=== PATIENT | male | born 1960 | race Caucasian/White ===

== ENCOUNTER → 2024-06-15 | Outpatient (CLI) | payer OTHER, SELFPAY ==
--- NOTE | 2024-06-15 15:00 | XR_ITS ---
Examination: CT left wrist, without contrast. 2-D sagittal reconstructions. 2-D coronal reconstructions. 3-D reconstructions. Date and time of exam:June 15, 2024 1422 hours INDICATIONS: Left wrist pain beginning 5 years ago CTDI: vol (mGy):3.84 DLP: (mGycm):70.5 Technique: Multiple 1.25 mm axial sections of the left wrist without intravenous contrast have been obtained. 2-D sagittal and coronal reconstructions have been obtained. 3-D reconstructions have been obtained. Low dose protocols were performed. One or more of the following dose reduction techniques were used; automated exposure control, adjustment of the mA and/or KV according to patient size, use of iterative reconstruction technique. Findings: Advanced osteoarthritis radiocarpal joint, marked narrowing radial navicular joint space Large cysts cystic areas within carpal bones The capitate is rotated relative to the lunate on the lateral view although yosef dislocation is not depicted Diffuse intercarpal joint narrowing No opaque foreign body No carpal metacarpal dislocation No yosef avascular necrosis No opaque foreign bodies IMPRESSION: Advanced osteoarthritis as above The capitate is rotated relative to the lunate on the lateral view although no yosef dislocation is noted, clinical correlation advised
== END | disposition home or self-care (01) ==
LOC: CCTX 14:16
PROVIDERS: PCP Nurse Practitioner Gerontology; Referring Provider Nurse Practitioner Gerontology; Visit Provider Nurse Practitioner Gerontology
DX: M19.032 Primary osteoarthritis, left wrist (principal)
CPT/HCPCS: 73200

== ENCOUNTER 2024-10-26 06:30 | Day surgery (SDC) | payer OTHER, SELFPAY ==
--- NOTE | 2024-10-25 07:00 | EKG_ITS ---
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
[2024-10-25 08:03] VITALS: BMI 23.8
[2024-10-25 09:33] LABS: INR 1.1 (0.9-1.3); Prothrombin Time 11.6 Seconds (9.0-12.2)
[2024-10-25 09:36] LABS: Alanine Aminotransferase 23 U/L (10-49); Albumin, Serum 4.4 gm/dL (3.4-4.8); Albumin/Globulin Ratio 2.3 (1.2-2.2); Alkaline Phosphatase 56 U/L (46-116); Anion Gap 7 (7-16); Aspartate Amino Transferase 23 U/L (0-34); BUN/Creatinine Ratio 16 Ratio (12-20); Bilirubin,Total 0.7 mg/dL (0.3-1.2); Blood Urea Nitrogen 13 mg/dL (9-23); Calcium 9.1 mg/dL (8.3-10.6); Calcium (Corrected) 9.1 mg/dL (8.5-10.1); Carbon Dioxide 28.7 mMol/L (20.0-31.0); Chloride 107 mMol/L (98-107); Creatinine (Component) 0.8 mg/dL (0.6-1.3); Estimated Creatinine Clearance 86.1 mL/min (>60); Globulin 1.9 gm/dL (2.3-3.5); Glucose 104 mg/dL (74-106); Osmolality,Calculated 285 (275-295); Sodium 143 mMol/L (136-145); Total Protein 6.3 gm/dL (5.7-8.2); eGFR > 60 See Note
[2024-10-25 09:58] LABS: Basophils # (Auto) 0.1 Thou/mm3 (0.0-0.2); Basophils % (Auto) 1 % (0-2.5); Eosinophils # (Auto) 0.1 Thou/mm3 (0.0-0.5); Eosinophils % (Auto) 2 % (0-10); Hemoglobin 14.6 g/dL (13.5-16.0); Immature Granulocytes % (Auto) 0 % (0-0); Immature Granulocytes Auto 0.01 Thou/mm3 (0.00-0.00); Lymphocytes # (Auto) 1.1 Thou/mm3 (1.0-4.8); Lymphocytes % (Auto) 21 % (10-50); Mean Corpuscular HGB Conc 34.8 g/dl (31.0-37.0); Mean Corpuscular Hemoglobin 32.2 pg (25.0-35.0); Mean Corpuscular Volume 93 fL (80-100); Monocytes # (Auto) 0.7 Thou/mm3 (0.0-0.8); Monocytes % (Auto) 12 % (0-12); Neutrophils # (Auto) 3.5 Thou/mm3 (1.8-7.7); Neutrophils % (Auto) 65 % (37-80); Nucleated Red Blood Cell % 0 /100 WBC (0); Platelet Count 199 Thou/mm3 (140-440); RDW Standard Deviation 43.7 fL (35.1-43.9); Red Blood Count 4.53 Miln/mm3 (4.50-5.90); White Blood Count 5.5 Thou/mm3 (3.8-10.6)
[2024-10-26] VITALS (8 sets, daily range): BP systolic 115–141; BP diastolic 72–100; PULSE 60–89; RESP 14–20; TEMP 36.2–36.6; O2SAT 97–100; BMI 24.3
--- NOTE | 2024-10-26 10:00 | SUR.PHASEI ---
1000 Patient arrived to recovery resting comfortably in [facility] on oxygen 10L via oxy mask with an oral airway in place, breathing unlabored, vital signs stable, dressing intact to lower abdomen; dermabond, gauze, medipore tape, no bleeding noted, report received from Miguel Angel MENDOZA/Miladis MENDOZA and Ankur DOWLING
--- NOTE | 2024-10-26 10:05 | ESOP_ITS ---
Date of Procedure 10/26/24 Pre Op Diagnosis Bilateral incarcerated inguinal hernia Post Op Diagnosis Bilateral incarcerated inguinal hernia Procedure Repair of bilateral incarcerated inguinal hernias with mesh Findings Bilateral indirect inguinal hernias with incarcerated omentum Procedure Description Patient brought into the operating room in supine position. After administration of general endotracheal anesthesia, patient's bilateral groins were shaved, prepped and draped in standard surgical manner. The procedure started on the patient's right side. The right inguinal crease was anesthetized with half percent Marcaine. An approximately 8 cm incision was made and dissection was carried to subcutaneous tissue. The Manuel's fascia was divided and the external oblique aponeurosis was opened towards the external ring. The hernia sac and the spermatic cord structures were from the posterior aspect of the external oblique aponeurosis at the level of pubic tubercle. The hernia sac was then meticulously dissected off the spermatic cord structures at the level of internal ring. The hernia sac was opened and the contents that were incarcerated omentum, reduced. The hernia sac was then ligated at the level of internal ring. The floor of inguinal canal was then reconstructed with ultra Pro proceed mesh. The mesh was secured with running 2-0 Prolene suture. The mesh secured medially to the pubic tubercle, superiorly into the conjoin tendon, inferiorly and to the shelving edge of inguinal ligament, the mesh was placed around the cord structures and tacked under the external oblique aponeurosis laterally. The area was copiously and thoroughly washed and irrigated, all the fluids were suctioned and the suction fluid returned clear. Hemostasis was adequate and satisfactory. External oblique aponeurosis was closed with running 2-0 Vicryl suture, and Manuel's fascia was closed with interrupted suture using 3-0 Vicryl. The incision was closed with 4-0 Monocryl in subcutaneous fashion. I then turned my attention to patient's left side. Procedure was performed in similar fashion and finding with identical. Instruments, needles and sponge counts were reported to be correct ?2. Patient tolerated the procedure well. He was extubated, breathing spontaneously and without difficulty and was tra nsferred to postanesthesia care in stable condition. Anesthesia GETA and local Pathology / specimen Other (Right inguinal hernia sac. Left inguinal hernia sac) Estimated Blood Loss 20 Condition Stable Disposition PACU Surgeon Juliet Sharp MD Surgical Staff Operation Date: 10/26/24 08:30 Case Staff PATIENT LIAISON: Ankur Boyle RNanesthesiologist/physician: Maryana Nicholas
[2024-10-26] MEDS: HYDROmorphone INJ 2 MG/ML VIAL 0.5 MG IVP ×2 (10:14→10:23)
--- NOTE | 2024-10-26 10:17 | SUR.PHASEI ---
1017 Verbal order read-back received from Dr. Lila Kwon 10mg/325 1 tab PO x1, for pain, will place order in EMR and administer per MD order
[2024-10-26] MEDS: HYDROcodone/APAP 10/325 TAB PO (10:34)
--- NOTE | 2024-10-26 11:45 | SUR.PHASEII ---
1110 Patient disconnected from vital signs monitor, dressed in his clothing, IV disconnected and is awaiting his ride, awake and alert, breathing unlabored, vital signs stable, per patient his pain is tolerable, dressing intact; no bleeding noted, abdominal binder applied on patient per MD, ate jello and drinking juices; denies nausea, discharge instructions were given to patient daughter and patient, daughter signed discharge instructiosn. Patient daughter was going to the pharmacy across the street to pick up and delivery driver medication for her father and then was coming back to the hospital to pick patient up. 1145 Patients daughter arrived, patient discharge with all his belongings, transported via wheelchair, and left in a private vehicle.
== END 2024-10-26 11:45 | disposition home or self-care (01) ==
PROVIDERS: Anesthesiology; PCP Internal Medicine Pulmonary Disease; Referring Provider Surgery; Visit Provider Surgery
PROC: (CPT 49507; principal; 2024-10-26 08:30)
DX: K40.00 Bilateral inguinal hernia, with obstruction, without gangrene, not specified as recurrent (principal); Z01.810 Encounter for preprocedural cardiovascular examination
CPT/HCPCS: 49507; 36415; 80053; 85025; 85610; 93005; A4217; A4649; C1781; J0131; J0690; J1100; J1171; J1885; J2405; J2704; J3010; J3490; A9270

== ENCOUNTER 2024-11-18 10:41 | Emergency (ER) | payer OTHER, SELFPAY ==
[2024-11-18 10:42] VITALS: BMI 24.3
[2024-11-18 11:22] VITALS: BP 129/85; PULSE 94; RESP 20; TEMP 36.9; O2SAT 99; BMI 24.7
--- NOTE | 2024-11-18 11:30 | PD.EDRME ---
Rapid Medical Screening Exam RME Arrival date/time: 11/18/24 10:41 This is a 64-year-old male that comes in with complaints of foul drainage coming out of surgery wound site. Patient states that he had an inguinal hernia repair done by Dr. Sharp the first week of October. Patient states that he has had fever and chills. Patient reports history of hyperlipidemia and high blood pressure. I have greeted and performed a focused initial assessment of this patient. Initial appropriate labs ordered at this time. A comprehensive ED assessment and evaluation of the patient and analysis of all test and completion of medical decision making process will be conducted by additional ED provider. Chief Complaint: Abdominal Pain Pediatric Time Seen by Provider: 11/18/24 11:08 Vital signs: Vital Signs Temperature 98.4 F 11/18/24 11:22 Pulse Rate 94 11/18/24 11:22 Respiratory Rate 20 11/18/24 11:22 Blood Pressure 129/85 H 11/18/24 11:22 Pulse Oximetry (%) 99 11/18/24 11:22 Oxygen Delivery Method Room Air 11/18/24 11:22
[2024-11-18 11:43] LABS: Collection Type, Urine Voided
[2024-11-18 12:02] LABS: Lactate (Lactic Acid) 1.9 mMol/L (0.4-2.0)
[2024-11-18 12:04] LABS: Basophils % (Auto) 0 % (0-2.5); Eosinophils # (Auto) 0.1 Thou/mm3 (0.0-0.5); Eosinophils % (Auto) 0 % (0-10); Hematocrit 39.7 % (41.0-53.0); Hemoglobin 13.8 g/dL (13.5-16.0); Immature Granulocytes % (Auto) 0 % (0-0); Immature Granulocytes Auto 0.05 Thou/mm3 (0.00-0.00); Lymphocytes # (Auto) 0.8 Thou/mm3 (1.0-4.8); Lymphocytes % (Auto) 7 % (10-50); Mean Corpuscular HGB Conc 34.8 g/dl (31.0-37.0); Mean Corpuscular Hemoglobin 32.1 pg (25.0-35.0); Mean Corpuscular Volume 92 fL (80-100); Monocytes # (Auto) 1.4 Thou/mm3 (0.0-0.8); Monocytes % (Auto) 12 % (0-12); Neutrophils # (Auto) 9.1 Thou/mm3 (1.8-7.7); Neutrophils % (Auto) 80 % (37-80); Nucleated Red Blood Cell % 0 /100 WBC (0); Platelet Count 245 Thou/mm3 (140-440); RDW Standard Deviation 41.7 fL (35.1-43.9); White Blood Count 11.4 Thou/mm3 (3.8-10.6)
[2024-11-18 12:08] LABS: Bilirubin,Urine Negative (Negative); Blood,Urine 1+ (Negative); Clarity,Urine Clear (Clear/Hazy); Color,Urine Yellow (Lt Yel-Yel); Culture Indicated,Urine Not Indicated; Glucose, Urine Negative (Negative); Ketones,Urine Trace (Negative); Leukocyte Esterase,Urine Negative (Negative); Nitrite,Urine Negative (Negative); PH,Urine 5.5 (5.0-7.0); Protein,Urine Trace (Neg - Trace); RBC,Urine 3 /hpf (0-3); Specific Gravity,Urine 1.031 (1.001-1.035); Squamous Epithelial Cell,Urine < 1 /hpf (0-5); Urobilinogen,Urine Negative mg/dL (0.0-1.0); WBC,Urine 1 /hpf (0-5)
[2024-11-18 12:35] LABS: Alanine Aminotransferase 16 U/L (10-49); Albumin, Serum 4.3 gm/dL (3.4-4.8); Albumin/Globulin Ratio 1.6 (1.2-2.2); Alkaline Phosphatase 82 U/L (46-116); Anion Gap 5 (7-16); Aspartate Amino Transferase 18 U/L (0-34); BUN/Creatinine Ratio 16 Ratio (12-20); Bilirubin,Total 0.7 mg/dL (0.3-1.2); Blood Urea Nitrogen 13 mg/dL (9-23); C-Reactive Protein 19.9 mg/dL (0.0-0.9); Calcium 9.4 mg/dL (8.3-10.6); Calcium (Corrected) 9.4 mg/dL (8.5-10.1); Carbon Dioxide 25.8 mMol/L (20.0-31.0); Chloride 105 mMol/L (98-107); Creatinine (Component) 0.8 mg/dL (0.6-1.3); Estimated Creatinine Clearance 83.1 mL/min (>60); Globulin 2.7 gm/dL (2.3-3.5); Glucose 111 mg/dL (74-106); Osmolality,Calculated 273 (275-295); Potassium 4.3 mMol/L (3.4-5.1); Procalcitonin 0.15 ng/ml (0.0-0.49); Sodium 136 mMol/L (136-145); eGFR > 60 See Note
--- NOTE | 2024-11-18 16:19 | XR_ITS ---
Examination: CT abdomen with intravenous contrast CT pelvis with intravenous contrast 2-D coronal reconstructions 2-D sagittal reconstructions Date and time of exam:November 18, 2024, 1725 hours INDICATIONS: Status post hernia repair 3 weeks ago with a discharge at the surgical site CTDI: vol (mGy 6.39 DLP: (mGycm) 317 Technique: Multiple axial sections of the abdomen and pelvis have been obtained. 64 slice high-resolution scanner used. 3 mm axial sections have been obtained, post intravenous injection 60 cc of Isovue 370 2-D sagittal, coronal reconstructions obtained. Low dose protocols were performed. One or more of the following dose reduction techniques were used; automated exposure control, adjustment of the mA and/or KV according to patient size, use of iterative reconstruction technique. Findings: No focal liver or splenic lesions No gallstones No pancreatic mass Small parapelvic right renal cysts, no hydronephrosis renal or ureteral calculi Normal appendix No bowel obstruction Increased radiodensity in the subcutaneous fatty tissue anterior pelvic wall more prominent right groin with soft tissue abscess in the right groin, axial image 168, coronal image 35, measuring 7 x 2.9 x 4.1 cm Urinary bladder intact IMPRESSION: Soft tissue abscess in the subcutaneous fatty tissue right groin, 7 x 2.9 x 4.1 cm
--- NOTE | 2024-11-18 16:20 | EDNOTE_ITS ---
<Statement entered by Radha Hill MD - 11/18/24 19:16> As co-signing physician, I was present and available for consult prn. I concur with the plan and care as documented by the midlevel provider. ED Ped. GI Abdomen RME/HPI General Chief Complaint: Wound Recheck / Suture Removal Stated Complaint: ABD WOUND SPLIT OPEN TODAY, SURGERY ON 10/26 FOR H Time Seen by Provider: 11/18/24 11:08 Arrival date/time: 11/18/24 10:41 RME / HPI RME / HPI narrative: 64-year-old male that comes in with complaints of foul drainage coming out of surgery wound site. Patient states that he had an inguinal hernia repair done by Dr. Sharp the first week of October. Patient states that he has had fever and chills. Patient reports history of hyperlipidemia and high blood pressure. Patient denies any vomiting denies any fever denies any other complaints therefore having a lot of pain. Patient is ambulatory. Related Data Home Medications ?Medication ?Instructions ?Recorded ?Confirmed atorvastatin 20 mg tablet 20 mg PO QPM 09/14/22 famotidine 20 mg tablet 20 mg PO BID 09/14/22 tamsulosin 0.4 mg capsule 0.4 mg PO QDAY 09/14/2209/15 lisinopril 5 mg tablet 5 mg PO DAILY 10/25/2410/25 Previous Rx's ?Medication ?Instructions ?Recorded docusate sodium 100 mg capsule 100 mg PO BID #40 caps 10/26/24 (Colace) hydrocodone 5 mg-acetaminophen 325 1 tab PO Q6H PRN pa in (scale score 10/26/24 mg tablet 7-10) #20 tabs ibuprofen 600 mg tablet 600 mg PO Q8H PRN pain (scal e 10/26/24 score 4-6) #15 tabs ibuprofen 800 mg tablet 800 mg PO Q8H PRN pain #30 t abs 11/18/24 sulfamethoxazole 800 1 tab PO BID #20 tabs mg-trimethoprim 160 mg tablet (Bactrim DS) Allergies Allergy/AdvReac Type Severity Reaction Status Date / Time No Known Allergies Allergy Verified 11/18/24 10:44 Pediatric Review of Systems Review of Systems Review of Systems: Review of system reviewed and within normal limits except mentioned in HPI Ped Exam Narrative Physical exam: VITAL SIGNS: Reviewed. GENERAL APPEARANCE: Alert and interactive, follows commands, no acute distress, HEAD AND FACE: Non-traumatic. ENT: PERRL, pink conjunctivitis, eyelid no trauma, Mucous membrane moist. NECK: Supple, nontender, no nuchal rigidity. CHEST: No tenderness, no crepitus, no paradoxical movement, no retractions. LUNGS: Clear, well ventilated, symmetric, no rales, no wheezing, no ronchi, no stridor, good breath sounds bilaterally. HEART: Regular rate, regular rhythm, no murmur, no gallops. ABDOMEN: Soft, positive bowel sounds, nondistended, no guarding, nontender, no rebound, no masses, status post bilateral hernia repair, right incision with 1 cm wound dehiscence and puslike drainage, redness noted on the surrounding nonfluctuant RECTAL: Deferred. GENITAL: Deferred. NEUROLOGICAL: Gross motor function intact sensory function intact, Appropriate for age. MUSCULOSKELETAL: low back nontender, full range of motion. EXTREMITIES: Nontender, full range of motion. SKIN: Color pink, dry, no rash, no lacerations, no abrasions, no contusions. LYMPHATICS: Deferred. Course Quality Measures none Orders Category Date Time Status CT Screening NOW Care 11/18/24 16:19 Active Insert IV NOW Care 11/18/24 16:44 Active Referral Wound Care Stat Cons 11/18/24 17:[address] abdomen pelvis w con Stat Exams 11/18/24 16:19 Completed Blood Culture (Lab) Stat Lab 11/18/24 11:31 Ordered CBC Stat Lab 11/18/24 11:47 Completed CRP [C-Reactive Protein] Stat Lab 11/18/24 11:47 Completed Comprehensive Metabolic Panel Stat Lab 11/18/24 11:47 Completed Lactate (Lactic Acid) Stat Lab 11/18/24 11:47 Completed Procalcitonin Stat Lab 11/18/24 11:47 Completed Urinalysis, C/S if Indicated Stat Lab 11/18/24 11:38 Completed Ketorolac Inj [Toradol Inj] Med 11/18/24 16:17 Discontinued 30 mg IVP X1 ONE Ringers Lactated 1000 ml [Lactated Ringers] 1,000 ml Med 11/18/24 16:18 Discontinued IV 999 mls/hr Trimethoprim/Sulfa 160/800 Ds [Bactrim Ds] Med 11/18/24 18:59 Once 1 tab PO X1 ONE cefTRIAXone/D5w 1gm IV premix [Rocephin/D5w 1gm IV Med 11/18/24 16:18 Discontinued premix] 1 gm in 50 ml IV X1 Vital Signs Vital signs: Vital Signs Temperature 98.4 F 11/18/24 11:22 Pulse Rate 94 11/18/24 11:22 Respiratory Rate 20 11/18/24 11:22 Blood Pressure 129/85 H 11/18/24 11:22 Pulse Oximetry (%) 99 11/18/24 11:22 Oxygen Delivery Method Room Air 11/18/24 11:22 Medical Decision Making MDM Narrative MDM Narrative: 64-year-old male that comes in with complaints of foul drainage coming out of surgery wound site. Patient states that he had an inguinal hernia repair done by Dr. Sharp the first week of October. Patient states that he has had fever and chills. Patient reports history of hyperlipidemia and high blood pressure. Patient denies any vomiting denies any fever denies any other complaints therefore having a lot of pain. Patient is ambulatory. Patient remained febrile in the emergency room. Patient CBC showed slight leukocytosis of 11.4 there is of the labs unremarkable. CT scan of the abdomen and pelvis showed right groin abscess Case discussed with patient's surgeon Dr. Sharp, told me that patient is okay to go home with Bactrim. Patient received IV fluids, Toradol, Ceftriaxone IV, and Bactrim Lab Data 11/18/24 11:47 11/18/24 11:47 Labs: Lab Results 11/18/24 11/18/24 Range/Units 11:38 11:47 WBC 11.4 H (3.8-10.6) Thou/mm3 RBC 4.30 L (4.50-5.90) Miln/mm3 Hgb 13.8 (13.5-16.0) g/dL Hct 39.7 L (41.0-53.0) % MCV 92 (80-100) fL MCH 32.1 (25.0-35.0) pg MCHC 34.8 (31.0-37.0) g/dl RDW Std Deviation 41.7 (35.1-43.9) fL Plt Count 245 D (140-440) Thou/mm3 Neut % (Auto) 80 (37-80) % Lymph % (Auto) 7 L (10-50) % [place] % (Auto) 12 (0-12) % Eos % (Auto) 0 (0-10) % Baso % (Auto) 0 (0-2.5) % Neut # (Auto) 9.1 H (1.8-7.7) Thou/mm3 Lymph # (Auto) 0.8 L (1.0-4.8) Thou/mm3 [place] # (Auto) 1.4 H (0.0-0.8) Thou/mm3 Eos # (Auto) 0.1 (0.0-0.5) Thou/mm3 Baso # (Auto) 0.0 (0.0-0.2) Thou/mm3 Immature Gran # (Auto) 0.05 H (0.00-0.00) Thou/mm3 Absolute Nucleated RBC 0.00 (0.00-0.00) Thou/mm3 Immature Gran % 0 (0-0) % Nucleated RBC % 0 (0) /100 WBC Sodium 136 (136-145) mMol/L Potassium 4.3 (3.4-5.1) mMol/L Chloride 105 (98-107) mMol/L Carbon Dioxide 25.8 (20.0-31.0) mMol/L Anion Gap 5 L (7-16) BUN 13 (9-23) mg/dL Creatinine 0.8 (0.6-1.3) mg/dL Estim Creat Clear Calc 83.1 (>60) mL/min eGFR > 60 (60 - ) See Note BUN/Creatinine Ratio 16 (12-20) Ratio Glucose 111 H (74-106) mg/dL Calculated Osmolality 273 L (275-295) Lactic Acid 1.9 (0.4-2.0) mMol/L Calcium 9.4 (8.3-10.6) mg/dL Corrected Calcium 9.4 (8.5-10.1) mg/dL Total Bilirubin 0.7 (0.3-1.2) mg/dL AST 18 (0-34) U/L ALT 16 (10-49) U/L Alkaline Phosphatase 82 (46-116) U/L C-Reactive Prot, Quant 19.9 H (0.0-0.9) mg/dL Total Protein 7.0 (5.7-8.2) gm/dL Albumin 4.3 (3.4-4.8) gm/dL Globulin 2.7 (2.3-3.5) gm/dL Albumin/Globulin Ratio 1.6 (1.2-2.2) Procalcitonin 0.15 (0.0-0.49) ng/ml Ur Collection Type Voided Urine Color Yellow (Lt Yel-Yel) Urine Clarity Clear (Clear/Hazy) Urine pH 5.5 (5.0-7.0) Ur Specific [place] 1.031 (1.001-1.035) Urine Protein Trace (Neg - Trace) Urine Glucose (UA) Negative (Negative) Urine Ketones Trace (Negative) Urine Blood 1+ A (Negative) Urine Nitrite Negative (Negative) Urine Bilirubin Negative (Negative) Urine Urobilinogen (Auto) Negative (0.0-1.0) mg/dL Ur Leukocyte Esterase Negative (Negative) Urine RBC 3 (0-3) /hpf Urine WBC 1 (0-5) /hpf Ur Squamous Epith Cells < 1 (0-5) /hpf Urine Bacteria None (None) Ur Culture Indicated? Not Indicated MDM (ped GI) Patient data External records reviewed:: None Clinical information provided by:: patient Social determinants that could affect healthcare access:: none Patient has the following chronic illnesses:: Recent inguinal hernia repair How is presenting disease/condition affected by chronic disease/condition?: e xacerbated by Evaluation data The following diagnostics were reviewed and interpreted by me:: lab results and radiology exam(s) Lab and/or radiology exams considered but not ordered:: None Interpretation Summary: See results MDM Medications Medications considered but not ordered:: None Medication administrations:: Medication Administration History Trimethoprim/Sulfamethoxazole (Trimethoprim/Sulfa 160/800 Ds Tablet) 1 tab PO X1 ONE Stop: 11/18/24 19:00 Discontinued Medications Lactated Ringer's (Lactated Ringers) 1,000 mls @ 999 mls/hr IV .Q1H1M ONE Stop: 11/18/24 17:18 Last Infusion: 11/18/24 18:30 Dose: Infused Documented By: Admin: 11/18/24 17:13 Dose: 999 mls/hr Documented By: MICHELLE Ceftriaxone Sodium/Dextrose (Rocephin/D5w 1gm Iv Premix) 1 gm in 50 mls @ 100 mls/hr IV X1 ONE Stop: 11/18/24 16:47 Last Infusion: 11/18/24 17:14 Dose: Infused Documented By: Admin: 11/18/24 16:48 Dose: 100 mls/hr Documented By: MICHELLE Ketorolac Tromethamine (Ketorolac Inj 30 Mg/Ml Vial) 30 mg IVP X1 ONE Stop: 11/18/24 16:18 Last Admin: 11/18/24 16:41 Dose: 30 mg Documented By: MICHELLE Toradol IM, ceftriaxone IV, IV fluids and Bactrim p.o. Consultations Consultation(s) initiated? (list below): No Diagnosis Most likely diagnosis given after review of the tests above:: Status post inguinal hernia repair, with infection, postop infection Admission Indicated Admission indicated?: not indicated Explain why admission is indicated or not indicated:: None Admission Request Was there a request for admission?: No Disposition Plan Disposition Plan: Discharge Discharge Attestation Discharge Attestation: The patient was given an opportunity to ask questions and understood the discharge instructions. Discharge instructions specifically effects, indications for sooner follow up or return to the emergency department, and the expected course of current diagnosis. Patient condition: Stable Discharge Plan Plan Patient Disposition: HOME (Self Care) Discharge Disposition comment: Stable Prescriptions/Referrals Prescriptions/Med Rec: New sulfamethoxazole-trimethoprim [Bactrim DS] 800-160 mg tablet 1 tab PO BID Qty: 20 0RF ibuprofen 800 mg tablet 800 mg PO Q8H PRN (Reason: pain) Qty: 30 0RF No Action atorvastatin 20 mg Tablet 20 mg PO QPM famotidine 20 mg Tablet 20 mg PO BID tamsulosin 0.4 mg Capsule 0.4 mg PO QDAY lisinopril 5 mg tablet 5 mg PO DAILY Patient Comments: TAKE 1 TABLET BY MOUTH EVERY DAY docusate sodium [Colace] 100 mg capsule 100 mg PO BID Qty: 40 0RF ibuprofen 600 mg tablet 600 mg PO Q8H PRN (Reason: pain (scale score 4-6)) Qty: 15 0RF hydrocodone-acetaminophen 5-325 mg tablet 1 tab PO Q6H MDD 4 PRN (Reason: pain (scale score 7-10)) Qty: 20 0RF Referrals: Imtiaz Romero MD [Primary Care Provider] - In 1 week Problem List Clinical Impression: Post-operative infection Patient/Caregiver Discharge Instructions Discharge Activity: activity as tolerated Education Materials: ED Post Op Wound Check, Infection Additional Instructions: Thank you for the opportunity for serving you today. You are stable for discharged . You are advised to: Follow-up with your surgeon, Dr. Sharp next week Return to ED for worsening of symptoms Increase oral fluids Take medication as prescribed Try to express the abscess twice a day as needed Print Language: Cymraes Stand Alone Forms: [employer]ash[employer] Award Info., Patient Portal Info Letter PA/CEMENT PATCHER Supervising Physician PA/CEMENT PATCHER Supervising Physician: MD Sergio
[2024-11-18] MEDS: KETOROLAC INJ 30 MG/ML VIAL IVP (16:41)
[2024-11-18] MEDS: cefTRIAXone/D5w 1gm IV premix 1 GM/50 ML BAG IV (16:48)
[2024-11-18 16:54] VITALS: BP 128/89; PULSE 75; RESP 16; TEMP 37.4; O2SAT 98
[2024-11-18] MEDS: RINGERS LACTATED 1000 ML 1,000 ML 999 ML IV (17:13)
[2024-11-18 19:05] VITALS: BP 141/87; PULSE 81; RESP 16; TEMP 37.2; O2SAT 97
--- NOTE | 2024-11-18 19:23 | PC.NURSE ---
PT WAS BIT GIVEN BACTRIM DUE TO PT WAS DC
== END 2024-11-18 19:05 | disposition home or self-care (01) ==
PROVIDERS: Nurse Practitioner Family; Emergency Provider Emergency Medicine; PCP Internal Medicine Pulmonary Disease
DX: T81.40XA Infection following a procedure, unspecified, initial encounter (principal); E78.5 Hyperlipidemia, unspecified; L02.214 Cutaneous abscess of groin
CPT/HCPCS: 36415; 74177; 80053; 81001; 83605; 84145; 85025; 86140; 87040; 96361; 96365; 96375; 99285; A4649; J0696; J1885; J7120; Q9967

== ENCOUNTER 2024-12-25 13:22 | Emergency (ER) | payer OTHER, SELFPAY ==
[2024-12-25 13:22] VITALS: BMI 22.9
[2024-12-25 13:40] VITALS: BP 129/80; PULSE 80; RESP 18; TEMP 37.2; O2SAT 99
--- NOTE | 2024-12-25 13:48 | PD.EDRME ---
Rapid Medical Screening Exam RME Arrival date/time: 12/25/24 13:22 64-year-old male with a history of hyperlipidemia, hypertension, prostatectomy, presents to the emergency room with a chief complaint of hematuria x 3 days. I have greeted and performed a focused initial assessment of this patient. A comprehensive ED assessment and evaluation of the patient, analysis of all test results, and completion of the medical decision making process will be conducted by additional ED providers. Chief Complaint: General Adult/Misc Complain Vital signs: Vital Signs Temperature 98.9 F 12/25/24 13:40 Pulse Rate 80 12/25/24 13:40 Respiratory Rate 18 12/25/24 13:40 Blood Pressure 129/80 12/25/24 13:40 Pulse Oximetry (%) 99 12/25/24 13:40 Oxygen Delivery Method Room Air 12/25/24 13:40 Vital signs reviewed by provider: Yes
[2024-12-25 14:14] LABS: Basophils # (Auto) 0.0 Thou/mm3 (0.0-0.2); Basophils % (Auto) 0 % (0-2.5); Eosinophils # (Auto) 0.0 Thou/mm3 (0.0-0.5); Eosinophils % (Auto) 0 % (0-10); Hematocrit 37.9 % (41.0-53.0); Hemoglobin 13.0 g/dL (13.5-16.0); Immature Granulocytes Auto 0.05 Thou/mm3 (0.00-0.00); Lymphocytes # (Auto) 0.8 Thou/mm3 (1.0-4.8); Lymphocytes % (Auto) 7 % (10-50); Mean Corpuscular HGB Conc 34.3 g/dl (31.0-37.0); Mean Corpuscular Hemoglobin 31.4 pg (25.0-35.0); Mean Corpuscular Volume 92 fL (80-100); Monocytes # (Auto) 1.9 Thou/mm3 (0.0-0.8); Monocytes % (Auto) 16 % (0-12); Neutrophils # (Auto) 9.1 Thou/mm3 (1.8-7.7); Neutrophils % (Auto) 77 % (37-80); Nucleated Red Blood Cell # 0.00 Thou/mm3 (0.00-0.00); Nucleated Red Blood Cell % 0 /100 WBC (0); Platelet Count 222 Thou/mm3 (140-440); RDW Standard Deviation 43.4 fL (35.1-43.9); Red Blood Count 4.14 Miln/mm3 (4.50-5.90); White Blood Count 11.9 Thou/mm3 (3.8-10.6)
[2024-12-25 14:40] LABS: INR 1.1 (0.9-1.3); Partial Thromboplastin Time 41.0 Seconds (22.0-36.0); Prothrombin Time 12.4 Seconds (9.0-12.2)
[2024-12-25 14:41] LABS: Collection Type, Urine Clean Catch; Squamous Epithelial Cell,Urine 0 /hpf (0-5)
[2024-12-25 14:43] LABS: Alanine Aminotransferase 59 U/L (10-49); Albumin, Serum 4.2 gm/dL (3.4-4.8); Albumin/Globulin Ratio 1.8 (1.2-2.2); Alkaline Phosphatase 90 U/L (46-116); Anion Gap 8 (7-16); Aspartate Amino Transferase 51 U/L (0-34); BUN/Creatinine Ratio 12 Ratio (12-20); Bilirubin,Total 0.4 mg/dL (0.3-1.2); Blood Urea Nitrogen 11 mg/dL (9-23); Calcium 8.8 mg/dL (8.3-10.6); Calcium (Corrected) 8.8 mg/dL (8.5-10.1); Carbon Dioxide 24.6 mMol/L (20.0-31.0); Chloride 99 mMol/L (98-107); Creatinine (Component) 0.9 mg/dL (0.6-1.3); Estimated Creatinine Clearance 79.2 mL/min (>60); Globulin 2.3 gm/dL (2.3-3.5); Glucose 108 mg/dL (74-106); Osmolality,Calculated 264 (275-295); Potassium 3.5 mMol/L (3.4-5.1); Sodium 132 mMol/L (136-145); Total Protein 6.5 gm/dL (5.7-8.2); eGFR > 60 See Note
[2024-12-25 15:29] LABS: Blood,Urine 3+ (Negative); Color,Urine Drk Red (Lt Yel-Yel); Glucose, Urine Negative (Negative); Leukocyte Esterase,Urine 2+ (Negative); PH,Urine 7.0 (5.0-7.0); Protein,Urine 3+ (Neg - Trace); Specific Gravity,Urine 1.020 (1.001-1.035); Urobilinogen,Urine 4.0 mg/dL (0.0-1.0)
[2024-12-25 15:50] LABS: Bilirubin,Urine Negative (Negative); Nitrite,Urine Negative (Negative); RBC,Urine 81606 /hpf (0-3)
[2024-12-25 15:51] LABS: Clarity,Urine Bloody (Clear/Hazy); Ketones,Urine Negative (Negative); WBC,Urine 39 /hpf (0-5)
[2024-12-25 18:15] VITALS: BP 132/80; PULSE 76; RESP 18; TEMP 37.3; O2SAT 96
--- NOTE | 2024-12-25 18:17 | PD.EDMALE ---
ED Male Genitalurinary RME/HPI General Chief complaint: General Adult/Misc Complain Stated complaint: HEMATURIA Time Seen by Provider: 12/25/24 14:08 Arrival date/time: 12/25/24 13:22 RME / HPI RME / HPI Narrative: 12/25/24 13:22 64-year-old male with a history of hyperlipidemia, hypertension, prostatectomy, presents to the emergency room with a chief complaint of hematuria x 3 days. I have greeted and performed a focused initial assessment of this patient. A comprehensive ED assessment and evaluation of the patient, analysis of all test results, and completion of the medical decision making process will be conducted by additional ED providers. This section includes all my notes and documentations, including HPI, PE, and ED course. Silas Muñoz MD HPI: ROS: All negative except as documented in HPI. Physical Exam: General: Alert and oriented. No acute distress when remaining still. Eyes: Conjunctivae and lids clear. ENT: No nasal congestion. Neck: Supple. Heart: RRR. Lungs: No respiratory distress. Good air movement. No rhonchi, wheezing, rales. Abdomen: Soft and nontender. Normal bowel sounds. No distension. No rebound or guarding. Back: No CVA tenderness. Skin: Warm and dry. Neuro: Alert and oriented X 3. I reviewed EMS and [facility] notes. I reviewed all diagnostic test results. My interpretation of the EKG is My interpretation of the chest x-ray is My review of the CT report is Blood tests remarkable for WBC 11.9. UA remarkable for 2+ leukocyte esterase, 20909 RBCs, and 39 WBCs. At this point, diagnoses include Treatment here included Significant improvement Not yet done: I discussed the case with our hospitalist. About the presentation and exam and diagnostics and treatments here. And need of further care in the hospital. Will accept the patient. Not yet done: Based on my best medical judgment, made decision no further evaluation or treatment indicated at this time. Patient understands and agrees to the discharge instructions customized and printed, see below. Silas Muñoz MD Related Data Home Medications ?Medication ?Instructions ?Recorded ?Confirmed atorvastatin 20 mg tablet 20 mg PO QPM 09/14/22 10/25/24 famotidine 20 mg tablet 20 mg PO BID 09/14/22 10/25/24 tamsulosin 0.4 mg capsule 0.4 mg PO QDAY 09/14/22 10/25/24 lisinopril 5 mg tablet 5 mg PO DAILY 10/25/24 10/25/24 Previous Rx's ?Medication ?Instructions ?Recorded docusate sodium 100 mg capsule 100 mg PO BID #40 caps 10/26/24 (Colace) hydrocodone 5 mg-acetaminophen 325 1 tab PO Q6H PRN pain (scale score 10/26/24 mg tablet 7-10) #20 tabs ibuprofen 600 mg tablet 600 mg PO Q8H PRN pain (scale 10/26/24 score 4-6) #15 tabs ibuprofen 800 mg tablet 800 mg PO Q8H PRN pain #30 tabs 11/18/24 sulfamethoxazole 800 1 tab PO BID #20 tabs 11/18/24 mg-trimethoprim 160 mg tablet (Bactrim DS) Allergies Allergy/AdvReac Type Severity Reaction Status Date / Time No Known Allergies Allergy Verified 12/25/24 13:25 Review of Systems Review of Systems Systems Reviewed: All systems reviewed, normal except as documented Past Medical History Past Medical History NEUROLOGIC: Negative Neurological Disorders or Seizures CARDIAC: Positive Hypercholesterolemia and Hypertension; Negative Cardiac Disorders or Congestive Heart Failure RESPIRATORY: Negative Chronic Obstructive Pulmonary Disease (COPD) or Asthma GASTROINTESTINAL: Positive Gastrointestinal Disorders, Hepatitis, Hemorrhoids and Gastroesophageal Reflux Disease GENITOURINARY: Positive Genitourinary Disorders, Kidney Stones, Inguinal Hernia and Prostate Cancer; Negative Renal Disease MUSCULOSKELETAL: Positive Musculoskeletal Disorders, Arthritis and Degenerative Disk Disease ENT: Positive Glaucoma and 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, 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) ENDOCRINE: Negative Endocrine Disorders, Diabetes Mellitus Type 1 or Diabetes Mellitus Type 2 HEMATOLOGIC: Negative Blood Disorders or Sickle Cell Disease OTHER HISTORY: Positive Hospitalization (surgeries, cancer), Blood Transfusions, Chicken Pox, Measles, Mumps, Cancer (prostate) and Prostate Cancer; Negative Autoimmune Disease, Blood Transfusion Reaction or Anesthesia Reactions Family History FAMILY HISTORY: Negative Family Psychiatric Problems, Family Respiratory Disorders, Family Cardiac Disorders, Family Gastrointestinal Problems, Family Cancer, Family Surgery or Family Anesthesia Reaction Surgical History SURGICAL: Positive Eye Surgery, Tonsillectomy, Transurethral Resection and Joint Replacement (wrist bilateral) Social History SMOKING STATUS: Current every day smoker ED Exam Narrative Physical exam: As noted in HPI. Course Quality Measures none Orders Category Date Time Status CBC Stat Lab 12/25/24 13:53 Completed CMP [Comprehensive Metabolic Panel] Stat Lab 12/25/24 13:53 Completed PT [Prothrombin Time with INR] Stat Lab 12/25/24 13:53 Completed PTT [Partial Thromboplastin Time] Stat Lab 12/25/24 13:53 Completed Type and Screen Stat Lab 12/25/24 13:53 Completed UA [Urinalysis] Stat Lab 12/25/24 14:20 Completed Urine Culture Stat Lab 12/25/24 14:20 Received Vital Signs Vital signs: Vital Signs Temperature 98.9 F 12/25/24 13:40 Pulse Rate 80 12/25/24 13:40 Respiratory Rate 18 12/25/24 13:40 Blood Pressure 129/80 12/25/24 13:40 Pulse Oximetry (%) 99 12/25/24 13:40 Oxygen Delivery Method Room Air 12/25/24 13:40 Urogenital - Male Patient data External records reviewed:: [facility] previous records (Per chart review, patient was seen here on 09/18/24 for post-operative infection.) Clinical information provided by:: patient Social determinants that could affect healthcare access:: none Patient has the following chronic illnesses:: HTN, HLD How is presenting disease/condition affected by chronic disease/condition?: uneffected by Evaluation data The following diagnostics were reviewed and interpreted by me:: lab results Lab and/or radiology exams considered but not ordered:: none Medications / Prescriptions Medications or Prescriptions considered but not ordered:: none Discharge Plan Prescriptions/Referrals Prescriptions/Med Rec: No Action atorvastatin 20 mg Tablet 20 mg PO QPM famotidine 20 mg Tablet 20 mg PO BID tamsulosin 0.4 mg Capsule 0.4 mg PO QDAY lisinopril 5 mg tablet 5 mg PO DAILY Patient Comments: TAKE 1 TABLET BY MOUTH EVERY DAY docusate sodium [Colace] 100 mg capsule 100 mg PO BID Qty: 40 0RF ibuprofen 600 mg tablet 600 mg PO Q8H PRN (Reason: pain (scale score 4-6)) Qty: 15 0RF hydrocodone-acetaminophen 5-325 mg tablet 1 tab PO Q6H MDD 4 PRN (Reason: pain (scale score 7-10)) Qty: 20 0RF sulfamethoxazole-trimethoprim [Bactrim DS] 800-160 mg tablet 1 tab PO BID Qty: 20 0RF ibuprofen 800 mg tablet 800 mg PO Q8H PRN (Reason: pain) Qty: 30 0RF Referrals: No Primary/Family,Physician [Primary Care Provider] - In 1 week Patient/Caregiver Discharge Instructions Print Language: Uzbek
--- NOTE | 2024-12-25 18:46 | PD.EDADULT ---
ED General RME/HPI General Chief complaint: General Adult/Misc Complain Stated complaint: HEMATURIA Time Seen by Provider: 12/25/24 14:08 Arrival date/time: 12/25/24 13:22 CC: Painless hematuria for the past several days intermittent. Patient has a significant history of bladder cancer and is seen by Dr. Benavides where he gets [facility] , on a regular basis, was seen there 2 weeks ago had minor spotting for a day or so and then nothing until 3 days ago when he had intermittent yosef hematuria, last episode was started this morning is been continuous over the last 3 urination episodes. Patient states all painless denies lightheadedness dizziness fever chills nausea vomiting diarrhea constipation. RME / HPI RME / HPI narrative: 12/25/24 13:22 64-year-old male with a history of hyperlipidemia, hypertension, prostatectomy, presents to the emergency room with a chief complaint of hematuria x 3 days. I have greeted and performed a focused initial assessment of this patient. A comprehensive ED assessment and evaluation of the patient, analysis of all test results, and completion of the medical decision making process will be conducted by additional ED providers. This section includes all my notes and documentations, including HPI, PE, and ED course. Silas Muñoz MD HPI: ROS: All negative except as documented in HPI. Physical Exam: General: Alert and oriented. No acute distress when remaining still. Eyes: Conjunctivae and lids clear. ENT: No nasal congestion. Neck: Supple. Heart: RRR. Lungs: No respiratory distress. Good air movement. No rhonchi, wheezing, rales. Abdomen: Soft and nontender. Normal bowel sounds. No distension. No rebound or guarding. Back: No CVA tenderness. Skin: Warm and dry. Neuro: Alert and oriented X 3. I reviewed EMS and retirement notes. I reviewed all diagnostic test results. My interpretation of the EKG is My interpretation of the chest x-ray is My review of the CT report is Blood tests remarkable for WBC 11.9. UA remarkable for 2+ leukocyte esterase, 05739 RBCs, and 39 WBCs. At this point, diagnoses include Treatment here included Significant improvement Not yet done: I discussed the case with our hospitalist. About the presentation and exam and diagnostics and treatments here. And need of further care in the hospital. Will accept the patient. Not yet done: Based on my best medical judgment, made decision no further evaluation or treatment indicated at this time. Patient understands and agrees to the discharge instructions customized and printed, see below. Silas Muñoz MD Related Data Home Medications ?Medication ?Instructions ?Recorded ?Confirmed atorvastatin 20 mg tablet 20 mg PO QPM 09/14/22 10/25/24 famotidine 20 mg tablet 20 mg PO BID 09/14/22 10/25/24 tamsulosin 0.4 mg capsule 0.4 mg PO QDAY 09/14/22 10/25/24 lisinopril 5 mg tablet 5 mg PO DAILY 10/25/24 10/25/24 Previous Rx's ?Medication ?Instructions ?Recorded docusate sodium 100 mg capsule 100 mg PO BID #40 caps 10/26/24 (Colace) hydrocodone 5 mg-acetaminophen 325 1 tab PO Q6H PRN pain (scale score 10/26/24 mg tablet 7-10) #20 tabs ibuprofen 600 mg tablet 600 mg PO Q8H PRN pain (scale 10/26/24 score 4-6) #15 tabs ibuprofen 800 mg tablet 800 mg PO Q8H PRN pain #30 tabs 11/18/24 sulfamethoxazole 800 1 tab PO BID #20 tabs 11/18/24 mg-trimethoprim 160 mg tablet (Bactrim DS) Allergies Allergy/AdvReac Type Severity Reaction Status Date / Time No Known Allergies Allergy Verified 12/25/24 13:25 Review of Systems Review of Systems Narrative Review of Systems: GEN: No fever, no chills, no weight loss EYES: No discharge, no visual changes, no pain HEENT: No ear pain, no congestion, no sore throat PULM: No shortness of breath, no cough, no congestion CV: No chest pain, no dyspnea on exertion, no palpitations GI: No nausea, no vomiting, no diarrhea, no pain, no constipation : No frequency, no urgency, no dysuria MUSC/SKEL: No joint pain, no back pain SKIN: No rash PSYCH: No hallucinations, no depression HEME/LYMPH: No easy bleeding or bruising tendencies NEURO: No weakness, no headache ED Exam Narrative Physical exam: [General: not in any acute distress Head normocephalic HEENT: Within acceptable limits Neck is supple nontender Chest equal chest rise nontender to palpation Respiratory: Clear to auscultation no wheezes crackles or rubs CV: Rate rhythm is regular no murmurs rubs or clicks Abdomen is soft nontender no masses positive bowel sounds all 4 quadrants Back: No CVA tenderness no spinous process tenderness from cervical spine thoracic and lumbar spine Skin: Intact no petechiae rash induration ulceration or crepitus Extremities: Moving all extremity against resistance cap refill less than 2 seconds neurosensory intact Neuro: Awake alert oriented x3 Glascow coma 15 no focal deficits] Course Course Course Narrative: For the course of the last 2 hours, we have had multiple attempts to try and insert a three-wa Eaton catheter for CBI, however it would only advance so far and then inflate the balloon in urethra, this was confirmed by CT this has been removed, standard 16-gauge Eaton catheter has now been placed without complication is manually being flushed at this time. Quality Measures none Orders Category Date Time Status Continuous Bladder Irrigation QSHIFT Care 12/25/24 18:45 Completed Eaton [Urinary Catheter] QS Care 12/25/24 18:45 Completed Transfer to another facility [Transfer/Discharge] Stat Discharge 12/25/24 23:[address] abdomen pelvis wo con Stat Exams 12/25/24 18:49 Completed Blood Culture (Lab) Stat Lab 12/25/24 23:20 Received CBC Stat Lab 12/25/24 13:53 Completed CMP [Comprehensive Metabolic Panel] Stat Lab 12/25/24 13:53 Completed Hemoglobin and Hematocrit Stat Lab 12/25/24 23:15 Completed PT [Prothrombin Time with INR] Stat Lab 12/25/24 13:53 Completed PTT [Partial Thromboplastin Time] Stat Lab 12/25/24 13:53 Completed Type and Screen Stat Lab 12/25/24 13:53 Completed UA [Urinalysis] Stat Lab 12/25/24 14:20 Completed Urine Culture Stat Lab 12/25/24 14:20 Received Lidocaine Jelly 2% Urojet [Xylocaine Jelly 2% Urojet] Med 12/25/24 22:00 Discontinued See Dose Instructions TOP X1 ONE Morphine Inj Med 12/25/24 20:03 Discontinued 4 mg IVP X1 ONE Morphine Inj Med 12/25/24 22:34 Discontinued 4 mg IVP X1 ONE Ondansetron Inj [Zofran Inj] Med 12/25/24 20:03 Discontinued 4 mg IVP X1 ONE cefTRIAXone/D5w 1gm IV premix [Rocephin/D5w 1gm IV Med 12/25/24 22:35 Discontinued premix] 1 gm in 50 ml IV X1 Vital Signs Vital signs: Vital Signs Temperature 98.9 F 12/25/24 13:40 Pulse Rate 80 12/25/24 13:40 Respiratory Rate 18 12/25/24 13:40 Blood Pressure 129/80 12/25/24 13:40 Pulse Oximetry (%) 99 12/25/24 13:40 Oxygen Delivery Method Room Air 12/25/24 13:40 Discharge Plan Plan Patient Disposition: [facility] Pt Being Transferred to: [facility] Service Needed for Transfer: Urology Prescriptions/Referrals Prescriptions/Med Rec: No Action atorvastatin 20 mg Tablet 20 mg PO QPM famotidine 20 mg Tablet 20 mg PO BID tamsulosin 0.4 mg Capsule 0.4 mg PO QDAY lisinopril 5 mg tablet 5 mg PO DAILY Patient Comments: TAKE 1 TABLET BY MOUTH EVERY DAY docusate sodium [Colace] 100 mg capsule 100 mg PO BID Qty: 40 0RF ibuprofen 600 mg tablet 600 mg PO Q8H PRN (Reason: pain (scale score 4-6)) Qty: 15 0RF hydrocodone-acetaminophen 5-325 mg tablet 1 tab PO Q6H MDD 4 PRN (Reason: pain (scale score 7-10)) Qty: 20 0RF sulfamethoxazole-trimethoprim [Bactrim DS] 800-160 mg tablet 1 tab PO BID Qty: 20 0RF ibuprofen 800 mg tablet 800 mg PO Q8H PRN (Reason: pain) Qty: 30 0RF Referrals: No Primary/Family,Physician [Primary Care Provider] - In 1 week Problem List Clinical Impression: Hematuria, UTI (urinary tract infection), Difficult Eaton catheter placement Patient/Caregiver Discharge Instructions Print Language: Irish Stand Alone Forms: [employer] Award Info., Patient Portal Info Letter MDM Clinical Information Provided by patient Medical Records Reviewed [facility] Meds/Rx Considered, not Ordered None Labs/Rad/Tests considered, not Ordered None EKG EKG not done Lab Interpretation Lab(s) interpretation(s): CBC shows a mild leukocytosis 11.9 H&H 13.0 and 37.9 with no thrombocytopenia Coags show PT of 12.4 INR 1.1 PTT of 41.0 Chemistry shows sodium 132 no other electrolyte imbalances renal impairment transaminitis or T. bili elevation. Urine is noted to be dark and bloody 3+ protein 3+ blood 2+ leukocyte Estrace, RBCs and 81,600 WBCs at 39 no squamous epithelial or Medication Administration(s) Medication Administration History Discontinued Medications Ceftriaxone Sodium/Dextrose (Rocephin/D5w 1gm Iv Premix) 1 gm in 50 mls @ 100 mls/hr IV X1 ONE Stop: 12/25/24 23:04 Last Infusion: 12/25/24 23:55 Dose: Infused Documented By: Admin: 12/25/24 23:25 Dose: 100 mls/hr Documented By: EF Lidocaine HCl (Lidocaine Jelly 2% (Urojet) 10 Ml Tube) 0 ml TOP X1 ONE Stop: 12/25/24 22:01 Last Admin: 12/25/24 22:09 Dose: 10 ml Documented By: EF Morphine Sulfate (Morphine Sulf Inj 10 Mg/Ml Vial) 4 mg IVP X1 ONE Stop: 12/25/24 20:04 Last Admin: 12/25/24 20:13 Dose: 4 mg Documented By: EF Morphine Sulfate (Morphine Sulf Inj 10 Mg/Ml Vial) 4 mg IVP X1 ONE Stop: 12/25/24 22:35 Last Admin: 12/25/24 22:38 Dose: 4 mg Documented By: EF Ondansetron HCl (Ondansetron Inj 2 Mg/Ml Inj 2 Ml) 4 mg IVP X1 ONE; Protocol Stop: 12/25/24 20:04 Last Admin: 12/25/24 20:13 Dose: 4 mg Documented By: EF
--- NOTE | 2024-12-25 18:49 | XR_ITS ---
Examination: CT abdomen and pelvis without contrast. Coronal 3-D reconstructions. Sagittal 2-D reconstructions. Date and time of exam:December 25, 2024, 2046 hours Comparison November 18, 2024 INDICATIONS: Diagnosis bladder cancer with hematuria today CTDI: vol (mGy): 6.66 DLP: (mGycm): 384 Technique: Axial images of the abdomen have been obtained, 3 mm slice thickness Intravenous contrast material has not been administered. Low dose protocols were performed. One or more of the following dose reduction techniques were used; automated exposure control, adjustment of the mA and/or KV according to patient size, use of iterative reconstruction technique. Findings: No focal liver or splenic lesions No gallstones No pancreatic or adrenal mass Bilateral perinephric stranding No renal or ureteral calculi Urinary bladder wall thickening Normal appendix No bowel obstruction Colonic diverticulosis Significant prostate tissue is not identified A Eaton catheter balloon is in the penile urethra Lumbar fusion L4-S1 with satisfactory alignment IMPRESSION: Perinephric stranding consistent with urinary tract infection Cystitis pattern Urinary Eaton catheter balloon is in the penile urethra
[2024-12-25] MEDS: MORPHINE SULF INJ 10 MG/ML VIAL 4 MG IVP ×2 (20:13→22:38)
[2024-12-25] MEDS: ONDANSETRON INJ 2 MG/ML INJ 2 ML 4 MG IVP (20:13)
[2024-12-25] MEDS: LIDOCAINE JELLY 2% (Urojet) 10 ML TUBE TOP (22:09)
--- NOTE | 2024-12-25 23:01 | PD.EDADDENDU ---
Emergency Room Addendum <Shana Mazariegos - Last Filed: 12/26/24 00:23> Addendum Narrative: I took over the care from previous shift physician, Bandar Gross NP, at 11 PM on 12/25/24. See previous notes for complete H & P and ED course. I reviewed all diagnostic test results. Repeat HnH remarkable for Hgb 11.7, Hct 33.2. Diagnoses include: hematuria, UTI, and difficult pena catheter placement. At 2354, I discussed the case with Dr. Choi, urologist at [facility]. About the presentation and exam and diagnostics and treatments here. And need of further care in the hospital there. Will accept the patient. Silas Muñoz MD <Silas Muñoz MD - Last Filed: 12/26/24 01:09> Addendum Narrative: I took over the care from Bandar Gross NP, at 11 PM on 12/25/24. See previous notes for complete H & P and ED course. I reviewed all diagnostic test results. Diagnoses include: Severe hematuria, UTI, and difficult pena catheter placement. At 2355, I discussed the case with Dr. Choi, urologist at [facility]. About the presentation and exam and diagnostics and treatments here. And need of further care in the hospital there. Will accept the patient. Silas Muñoz MD
[2024-12-25] MEDS: cefTRIAXone/D5w 1gm IV premix 1 GM/50 ML BAG IV (23:25)
[2024-12-25 23:36] LABS: Hematocrit 33.2 % (41.0-53.0); Hemoglobin 11.7 g/dL (13.5-16.0)
--- NOTE | 2024-12-26 00:01 | PC.NURSE ---
[facility] accepts for Urology, [facility] Ed to ED at 2359. EMS ETA 011
[2024-12-26 00:30] VITALS: BP 125/75; PULSE 88; RESP 18; TEMP 37.2; O2SAT 97
--- NOTE | 2024-12-26 01:17 | PC.NURSE ---
report called to dakotah gonzalez from [facility] via telephone
== END 2024-12-26 01:09 | disposition short-term general hospital (02) ==
PROVIDERS: Nurse Practitioner Family; Emergency Provider Emergency Medicine
DX: N39.0 Urinary tract infection, site not specified (principal); R31.9 Hematuria, unspecified; Z75.1 Person awaiting admission to adequate facility elsewhere
CPT/HCPCS: 51702; 36415; 74176; 80053; 81001; 85014; 85018; 85025; 85610; 85730; 86850; 86900; 86901; 87040; 87077; 87086; 87186; 96365; 96375; 96376; 99283; A4314; J0696; J2270; J2405

== ENCOUNTER 2025-01-03 15:21 | Emergency (ER) | payer OTHER, SELFPAY ==
[2025-01-03 15:21] VITALS: BMI 22.1
[2025-01-03 15:43] VITALS: BP 115/80; PULSE 129; RESP 20; TEMP 36.6; O2SAT 98
--- NOTE | 2025-01-03 15:58 | PD.EDMALE ---
ED Male Genitalurinary RME/HPI General Chief complaint: General Adult/Misc Complain Stated complaint: BLEEDING OUT PENIS Time Seen by Provider: 01/03/25 15:47 Arrival date/time: 01/03/25 15:21 RME / HPI RME / HPI Narrative: 64 year old male with history of hypertension, hyperlipidemia, prostate CA s/p robotic prostatectomy, urethral strictures, underwent internal visual urethrotomy 08/[address] Mahmood presents to the ED sent by Dr. Sifuentes for evaluation of bleeding from penis beginning at 10:00 AM today. Patient reports he was evaluated here on 12/25/2024 for hematuria and had a pean catheter inserted with the balloon inflated in the urethra. States he was transferred to [facility] and then discharged from there with a pena catheter. [facility] he followed up with his urologist 2 days ago Wednesday and had the Pena catheter removed without difficulty and urine during that time was yellow. Yesterday he had no bleeding and was urinating well until 10:00 AM today. Reportedly was sitting at the kitchen table when he began bleeding from his penis and persistently bleeding since. Accompanied by passing blood clots. [facility] he consulted with urologist today who advised he come to the ED for further evaluation and treatment. Patient additionally complains of feeling globally weak today. Denies difficulty urinating. Related Data Home Medications ?Medication ?Instructions ?Recorded ?Confirmed atorvastatin 20 mg tablet 20 mg PO QPM 09/14/22 10/25/24 famotidine 20 mg tablet 20 mg PO BID 09/14/22 10/25/24 tamsulosin 0.4 mg capsule 0.4 mg PO QDAY 09/14/22 10/25/24 lisinopril 5 mg tablet 5 mg PO DAILY 10/25/24 10/25/24 Previous Rx's ?Medication ?Instructions ?Recorded docusate sodium 100 mg capsule 100 mg PO BID #40 caps 10/26/24 (Colace) hydrocodone 5 mg-acetaminophen 325 1 tab PO Q6H PRN pain (scale score 10/26/24 mg tablet 7-10) #20 tabs ibuprofen 600 mg tablet 600 mg PO Q8H PRN pain (scale 10/26/24 score 4-6) #15 tabs ibuprofen 800 mg tablet 800 mg PO Q8H PRN pain #30 tabs 11/18/24 sulfamethoxazole 800 1 tab PO BID #20 tabs 11/18/24 mg-trimethoprim 160 mg tablet (Bactrim DS) Allergies Allergy/AdvReac Type Severity Reaction Status Date / Time No Known Allergies Allergy Verified 01/03/25 15:24 Review of Systems Review of Systems Systems Reviewed: All systems reviewed, normal except as documented Past Medical History Past Medical History CARDIAC: Positive Hypercholesterolemia and Hypertension GASTROINTESTINAL: Positive Gastrointestinal Disorders, Hepatitis, Hemorrhoids and Gastroesophageal Reflux Disease GENITOURINARY: Positive Genitourinary Disorders, Kidney Stones, Inguinal Hernia and Prostate Cancer MUSCULOSKELETAL: Positive Musculoskeletal Disorders, Arthritis and Degenerative Disk Disease ENT: Positive Glaucoma and Blind OTHER HISTORY: Positive Hospitalization, Blood Transfusions, Chicken Pox, Measles, Mumps, Cancer and Prostate Cancer Surgical History SURGICAL: Positive Eye Surgery, Tonsillectomy, Transurethral Resection and Joint Replacement Social History SMOKING STATUS: Current every day smoker ED Exam Narrative Physical exam: Constitutional: Awake, alert, nontoxic, appears uncomfortable, anxious HEENT: NC, AT, EOMI Neck: Supple CV: Tachycardic, no m/r/g Lungs: CTAB, no w/r/r, no respiratory distress. Abd: Soft, mild discomfort to the suprapubic region, no rebound, no guarding, no HSM noted to palpation : Active and continuos penile bleeding Extremities: No deformities, no edema noted Neuro: AAOx3, CN 2-12 GIBL Skin: Warm, dry, intact Course Course Course Narrative: 1800h: Labs reviewed. Hemoglobin noted to be 10.6 today, decreased from 11.7 at last check on the fourth of this month. Has received IV fluids, Pena catheter [address] Will require urology for further evaluation and management given persistent penile bleeding. Patient signed out to Dr. Gifford pending CT urogram w con, UA, and final disposition. Quality Measures none Orders Category Date Time Status Bladder Scan NEEDED Care 01/03/25 18:[address] Screening X1 Care 01/03/25 17:39 Active Continuous Pulse Oximetry NOW Care 01/03/25 15:52 Completed Insert IV NOW Care 01/03/25 15:[address] urogram w con Stat Exams 01/03/25 15:59 Ordered CBC Stat Lab 01/03/25 16:25 Completed CMP [Comprehensive Metabolic Panel] Stat Lab 01/03/25 16:25 Completed Type and Screen Stat Lab 01/03/25 16:25 Completed Urinalysis Stat Lab 01/03/25 15:53 Ordered Urine Culture Stat Lab 01/03/25 15:53 Ordered Lidocaine Jelly 2% Urojet [Xylocaine Jelly 2% Urojet] Med 01/03/25 17:00 Discontinued See Dose Instructions TOP X1 ONE Morphine Inj Med 01/03/25 17:00 Discontinued 4 mg IVP X1 ONE Sodium Chloride 0.9% 1000 ml [Ns] 1,000 ml Med 01/03/25 16:01 Discontinued IV 999 mls/hr Vital Signs Vital signs: Vital Signs Temperature 97.9 F 01/03/25 15:43 Pulse Rate 129 H 01/03/25 15:43 Respiratory Rate 20 01/03/25 15:43 Blood Pressure 115/80 01/03/25 15:43 Pulse Oximetry (%) 98 01/03/25 15:43 Oxygen Delivery Method Room Air 01/03/25 15:43 Pulse ox is 98% on room air which is adequate. Urogenital - Male MDM Narrative MDM Narrative:: Lizabeth Light am scribing for and in the presence of Dr. Renee. Patient data External records reviewed:: [facility] previous records (I reviewed ED visit on 12/25/2024 ) Clinical information provided by:: patient Social determinants that could affect healthcare access:: none Patient has the following chronic illnesses:: hypertension, hyperlipidemia, prostate CA s/p robotic prostatectomy, urethral strictures, underwent internal visual urethrotomy 08/[address] Mahmood How is presenting disease/condition affected by chronic disease/condition?: exacerbated by Evaluation data The following diagnostics were reviewed and interpreted by me:: lab results Lab and/or radiology exams considered but not ordered:: None Interpretation Summary: Hemoglobin noted to be 10.7, decreased from last month. CT urogram is pending. Medications / Prescriptions Medications or Prescriptions considered but not ordered:: None Medication administrations:: Medication Administration History Discontinued Medications Sodium Chloride (Ns) 1,000 mls @ 999 mls/hr IV .Q1H1M ONE Stop: 01/03/25 17:01 Last Infusion: 01/03/25 17:37 Dose: Infused Documented By: Admin: 01/03/25 16:24 Dose: 999 mls/hr Documented By: SUKUMAR Lidocaine HCl (Lidocaine Jelly 2% (Urojet) 10 Ml Tube) 0 ml TOP X1 ONE Stop: 01/03/25 17:01 Last Admin: 01/03/25 17:16 Dose: 10 ml Documented By: SUKUMAR Morphine Sulfate (Morphine Sulf Inj 10 Mg/Ml Vial) 4 mg IVP X1 ONE Stop: 01/03/25 17:01 Last Admin: 01/03/25 17:14 Dose: 4 mg Documented By: SUKUMAR See above Consultations Consultation(s) initiated? (list below): No Diagnosis Urogenital Male Differential Diagnosis: urinary tract infection, urethritis, prostatitis and acute retention of urine Most likely diagnosis given after review of the tests above:: Penile bleeding, anemia Admission Indicated Admission indicated?: not indicated Explain why admission is indicated or not indicated:: Signed out pending final disposition. Admission Request Was there a request for admission?: No Disposition Plan Disposition Plan: other (specify) (Signed out to Dr. Gifford pending CT urogram w con. ) Discharge Plan Prescriptions/Referrals Prescriptions/Med Rec: No Action atorvastatin 20 mg Tablet 20 mg PO QPM famotidine 20 mg Tablet 20 mg PO BID tamsulosin 0.4 mg Capsule 0.4 mg PO QDAY lisinopril 5 mg tablet 5 mg PO DAILY Patient Comments: TAKE 1 TABLET BY MOUTH EVERY DAY docusate sodium [Colace] 100 mg capsule 100 mg PO BID Qty: 40 0RF ibuprofen 600 mg tablet 600 mg PO Q8H PRN (Reason: pain (scale score 4-6)) Qty: 15 0RF hydrocodone-acetaminophen 5-325 mg tablet 1 tab PO Q6H MDD 4 PRN (Reason: pain (scale score 7-10)) Qty: 20 0RF sulfamethoxazole-trimethoprim [Bactrim DS] 800-160 mg tablet 1 tab PO BID Qty: 20 0RF ibuprofen 800 mg tablet 800 mg PO Q8H PRN (Reason: pain) Qty: 30 0RF Referrals: No Primary/Family,Physician [Primary Care Provider] - In 1 week Problem List Clinical Impression: Hemorrhage of penis, Anemia Patient/Caregiver Discharge Instructions Print Language: Tajik
--- NOTE | 2025-01-03 15:59 | XR_ITS ---
Examination: CT abdomen with intravenous contrast CT pelvis with intravenous contrast 2-D coronal reconstructions 2-D sagittal reconstructions Date and time of exam:January 03, 2025, 1826 hours Comparison December 25, 2024 INDICATION: Active penile bleeding, bladder cancer diagnosis. CTDI: vol (mGy) 11.18 DLP: (mGycm) 694 Technique: Multiple axial sections of the abdomen and pelvis have been obtained. 64 slice high-resolution scanner used. 3 mm axial sections have been obtained, post intravenous injection of 60 cc Isovue-370 2-D sagittal, coronal reconstructions obtained. Low dose protocols were performed. One or more of the following dose reduction techniques were used; automated exposure control, adjustment of the mA and/or KV according to patient size, use of iterative reconstruction technique. Findings: No focal liver or splenic lesions Gallbladder wall appears mildly thickened No pancreatic or adrenal mass Low-density abnormal area in the posterior lateral left kidney, axial image 112, measuring 27 mm No hydronephrosis or ureteral calculi Normal appendix No bowel obstruction Extensive hemorrhage/mass in the urinary bladder Urinary Eaton catheter the balloon of the urinary Eaton catheter is in the penile urethra Transpedicular lumbar fusion L4-S1 with anatomic alignment IMPRESSION: Recommend hepatobiliary sonography follow-up to exclude gallbladder wall thickening 27 mm low-density area in the left kidney, differential would include abscess, renal tumor, recommend MRI kidneys follow up pre and postcontrast Large area of hemorrhage/mass in the urinary bladder The Eaton catheter balloon is seen in the penile urethra
--- NOTE | 2025-01-03 16:06 | PC.NURSE ---
Patient to er from [facility] and taken to room 19, patient to er with c/o bleeding from penis x 1 week, patient states he had a pena placed at that time here in this er and was transferred to [facility] with pena then d/c'd and went to see dr. head on wednesday in which he took the pena out and has continued to bleed, currently patient has moderate amount of blood noted coming from penis with clots, skin is slightly pale, cool and dry, new orders received, son at bedside.
[2025-01-03] MEDS: SODIUM CHLORIDE 0.9% 1000 ML 1,000 ML 999 ML IV (16:24)
[2025-01-03 16:54] LABS: Basophils # (Auto) 0.0 Thou/mm3 (0.0-0.2); Basophils % (Auto) 0 % (0-2.5); Eosinophils # (Auto) 0.1 Thou/mm3 (0.0-0.5); Eosinophils % (Auto) 0 % (0-10); Hematocrit 31.1 % (41.0-53.0); Hemoglobin 10.7 g/dL (13.5-16.0); Immature Granulocytes Auto 0.24 Thou/mm3 (0.00-0.00); Lymphocytes # (Auto) 1.9 Thou/mm3 (1.0-4.8); Lymphocytes % (Auto) 14 % (10-50); Mean Corpuscular HGB Conc 34.4 g/dl (31.0-37.0); Mean Corpuscular Hemoglobin 31.3 pg (25.0-35.0); Mean Corpuscular Volume 91 fL (80-100); Monocytes # (Auto) 1.1 Thou/mm3 (0.0-0.8); Monocytes % (Auto) 8 % (0-12); Neutrophils # (Auto) 10.9 Thou/mm3 (1.8-7.7); Neutrophils % (Auto) 77 % (37-80); Nucleated Red Blood Cell # 0.00 Thou/mm3 (0.00-0.00); Nucleated Red Blood Cell % 0 /100 WBC (0); Platelet Count 528 Thou/mm3 (140-440); RDW Standard Deviation 43.4 fL (35.1-43.9); Red Blood Count 3.42 Miln/mm3 (4.50-5.90); White Blood Count 14.3 Thou/mm3 (3.8-10.6)
[2025-01-03 17:11] VITALS: BP 110/74; PULSE 122; RESP 16; O2SAT 100
[2025-01-03] MEDS: MORPHINE SULF INJ 10 MG/ML VIAL 4 MG IVP ×2 (17:14→19:36)
[2025-01-03 17:15] LABS: Alanine Aminotransferase 51 U/L (10-49); Albumin, Serum 3.8 gm/dL (3.4-4.8); Albumin/Globulin Ratio 1.7 (1.2-2.2); Alkaline Phosphatase 102 U/L (46-116); Anion Gap 8 (7-16); Aspartate Amino Transferase 27 U/L (0-34); BUN/Creatinine Ratio 28 Ratio (12-20); Bilirubin,Total 0.3 mg/dL (0.3-1.2); Blood Urea Nitrogen 22 mg/dL (9-23); Calcium 9.3 mg/dL (8.3-10.6); Calcium (Corrected) 9.5 mg/dL (8.5-10.1); Carbon Dioxide 24.8 mMol/L (20.0-31.0); Chloride 104 mMol/L (98-107); Creatinine (Component) 0.8 mg/dL (0.6-1.3); Estimated Creatinine Clearance 88.6 mL/min (>60); Globulin 2.2 gm/dL (2.3-3.5); Glucose 123 mg/dL (74-106); Osmolality,Calculated 278 (275-295); Potassium 4.2 mMol/L (3.4-5.1); Sodium 137 mMol/L (136-145); Total Protein 6.0 gm/dL (5.7-8.2); eGFR > 60 See Note
[2025-01-03] MEDS: LIDOCAINE JELLY 2% (Urojet) 10 ML TUBE TOP (17:16)
--- NOTE | 2025-01-03 17:40 | PC.NURSE ---
Unable to obtain urine sample do to patient pena cathetar not draining and large clots. Dr. Renee made aware.
--- NOTE | 2025-01-03 18:33 | EDNOTE_ITS ---
Emergency Room Addendum <Shana Mazariegos - Last Filed: 01/03/25 19:22> Addendum Narrative: 1800: Care assumed from Dr. Renee, the previous shift emergency physician. Past medical, surgical, social and family history reviewed. Vitals and home medications reviewed. Results and treatment plan discussed. I will assume the care of the patient at this time and will follow the patient, pending CT and urinalysis. Please refer to the emergency department record for history and examination from initial visit. RADIOLOGY RESULTS: [facility] Signed Patient: RUSTY GORDON. Record#: [id number] Birthdate: 1960 Age/Sex: 64 / M Location: [facility] Attending Dr: Ordering Physician: Keara Renee MD Date of Service: 01/03/25 Procedure(s): CT urogram w con Accession Number(s): [id number] cc: Ankur Ross MD; Keara Renee MD; NO PRIMARY/FAMILY,PHYSICIAN~ Examination: CT abdomen with intravenous contrast CT pelvis with intravenous contrast 2-D coronal reconstructions 2-D sagittal reconstructions Date and time of exam:January 03, 2025, 1826 hours Comparison December 25, 2024 INDICATION: Active penile bleeding, bladder cancer diagnosis. CTDI: vol (mGy) 11.18 DLP: (mGycm) 694 Technique: Multiple axial sections of the abdomen and pelvis have been obtained. 64 slice high-resolution scanner used. 3 mm axial sections have been obtained, post intravenous injection of 60 cc Isovue-370 2-D sagittal, coronal reconstructions obtained. Low dose protocols were performed. One or more of the following dose reduction techniques were used; automated exposure control, adjustment of the mA and/or KV according to patient size, use of iterative reconstruction technique. Findings: No focal liver or splenic lesions Gallbladder wall appears mildly thickened No pancreatic or adrenal mass Low-density abnormal area in the posterior lateral left kidney, axial image 112, measuring 27 mm No hydronephrosis or ureteral calculi Normal appendix No bowel obstruction Extensive hemorrhage/mass in the urinary bladder Urinary Eaton catheter the balloon of the urinary Eaton catheter is in the penile urethra Transpedicular lumbar fusion L4-S1 with anatomic alignment IMPRESSION: Recommend hepatobiliary sonography follow-up to exclude gallbladder wall thickening 27 mm low-density area in the left kidney, differential would include abscess, renal tumor, recommend MRI kidneys follow up pre and postcontrast Large area of hemorrhage/mass in the urinary bladder The Eaton catheter balloon is seen in the penile urethra Dictated By: Ankur Ross MD Signed By: <Electronically signed by Ankur Ross MD in OV> 01/03/251914 <Adalebrto Gifford, DO - Last Filed: 01/03/25 21:30> Addendum Narrative: 1800: Care assumed from Dr. Renee, the previous shift emergency physician. Past medical, surgical, social and family history reviewed. Vitals and home medications reviewed. Results and treatment plan discussed. I will assume the care of the patient at this time and will follow the patient, pending CT and urinalysis. Please refer to the emergency department record for history and examination from initial visit. RADIOLOGY RESULTS: [facility] Signed Patient: RUSTY GORDON. Record#: [id number] Birthdate: 1960 Age/Sex: 64 / M Location: [facility] Attending Dr: Ordering Physician: Keara Renee MD Date of Service: 01/03/25 Procedure(s): CT urogram w con Accession Number(s): [id number] cc: Ankur Ross MD; Keara Renee MD; NO PRIMARY/FAMILY,PHYSICIAN~ Examination: CT abdomen with intravenous contrast CT pelvis with intravenous contrast 2-D coronal reconstructions 2-D sagittal reconstructions Date and time of exam:January 03, 2025, 1826 hours Comparison December 25, 2024 INDICATION: Active penile bleeding, bladder cancer diagnosis. CTDI: vol (mGy) 11.18 DLP: (mGycm) 694 Technique: Multiple axial sections of the abdomen and pelvis have been obtained. 64 slice high-resolution scanner used. 3 mm axial sections have been obtained, post intravenous injection of 60 cc Isovue-370 2-D sagittal, coronal reconstructions obtained. Low dose protocols were performed. One or more of the following dose reduction techniques were used; automated exposure control, adjustment of the mA and/or KV according to patient size, use of iterative reconstruction technique. Findings: No focal liver or splenic lesions Gallbladder wall appears mildly thickened No pancreatic or adrenal mass Low-density abnormal area in the posterior lateral left kidney, axial image 112, measuring 27 mm No hydronephrosis or ureteral calculi Normal appendix No bowel obstruction Extensive hemorrhage/mass in the urinary bladder Urinary Eaton catheter the balloon of the urinary Eaton catheter is in the penile urethra Transpedicular lumbar fusion L4-S1 with anatomic alignment IMPRESSION: Recommend hepatobiliary sonography follow-up to exclude gallbladder wall thickening 27 mm low-density area in the left kidney, differential would include abscess, renal tumor, recommend MRI kidneys follow up pre and postcontrast Large area of hemorrhage/mass in the urinary bladder The Eaton catheter balloon is seen in the penile urethra Dictated By: Ankur Ross MD Signed By: <Electronically signed by Ankur Ross MD in OV> 01/03/251914 Case was signed out to me. I reviewed the CT scan of the abdomen pelvis which showed the Eaton catheter balloon to be blown up within the urethra. The balloon was taken down and this catheter was immediately removed. We then here in the emergency room tried to pass a 16 Singaporean Eaton catheter without success. We then tried to pass a 16 Singaporean coud? tip catheter without success. We then tried a 22 Singaporean, because we did not have an 18 or 20 Singaporean, coud? catheter and were unable to pass it. Ultrasound shows clot within the bladder and a distended urinary bladder from urine. Prior to Eaton catheter attempts, the patient had received morphine 4 mg IV x 2 and Dilaudid 1 mg IV x 2 to try to get the patient to relax. Putting the patient in Trendelenburg did not help with the passage of the Eaton catheter. We will need to transfer this patient to a facility that has a urologist to place a catheter for this patient's urinary retention and hematuria with history of radical prostatectomy 11 years ago for prostate cancer.
[2025-01-03 20:24] VITALS: BP 110/79; PULSE 120; RESP 20; TEMP 36.4; O2SAT 98
[2025-01-03] MEDS: HYDROmorphone INJ 2 MG/ML VIAL 1 MG IVP ×2 (20:31→20:54)
[2025-01-03 21:37] VITALS: BP 109/75; PULSE 118; RESP 15; TEMP 36.7; O2SAT 97
[2025-01-03] MEDS: cefTRIAXone/D5w 1gm IV premix 1 GM/50 ML BAG IV (21:49)
[2025-01-03 22:00] VITALS: BP 109/77; PULSE 114; RESP 13; TEMP 36.8; O2SAT 97
--- NOTE | 2025-01-03 22:03 | PD.EDADDENDU ---
Emergency Room Addendum Addendum Narrative: 2203: Discussed case with [facility]'s transfer center. Discussed patients ED course, exam findings, labs, and radiology results. Awaiting callback.
[2025-01-03] MEDS: LIDOCAINE VISCOUS 2% 15 ML UDC PO (22:37)
[2025-01-03] MEDS: PIPER/TAZO 3.375 GM PREMIX 3.375 GM/50 ML BAG IV (22:39)
--- NOTE | 2025-01-03 22:39 | EDNOTE_ITS ---
Emergency Room Addendum Addendum Narrative: Eventually we received faxed paperwork from [facility] which stated that the patient required cystoscopy with urethral dilatation and a Eaton catheter being placed over a wire on December 26. Urethral stricture disease was noted. Patient's urine grew back US BL infection sensitive to Zosyn. Therefore, the patient was started on Zosyn 3.375 g IV here in the emergency room. I am still waiting to hear back from [facility] who I have already discussed this case with their media coordinator who needs now to discuss the case with their urologist on-call.
--- NOTE | 2025-01-03 22:49 | PC.NURSE ---
5110 Packet faxed over to [facility] regarding urology consult. Per [facility] they have the same urologist confectionery cooker. Transfer initiated with Zhane Kwon at transfer center spoke to MD DASILVA for emtala questions.
--- NOTE | 2025-01-03 23:15 | PC.NURSE ---
JUSTIN FROM THE [facility] CALLED AND THEY ARE HAVING TROUBLE REACHING THEIR UROLOGY PROVIDER AT THIS TIME AND ENCOURAGED US TO SEEK ELSE WHERE.
--- NOTE | 2025-01-03 23:34 | PC.NURSE ---
[facility] contacted for urology transfer, packet faxed. MD BLAKE on the phone at the moment with transfer center for emtala questions
--- NOTE | 2025-01-03 23:45 | PD.EDADDENDU ---
Emergency Room Addendum <Shana Yair - Last Filed: 01/03/25 23:46> Addendum Narrative: 2345: Dr. Hill, urologist from [facility], accepts the patient for transfer. <Adalberto Gifford DO - Last Filed: 01/04/25 00:39> Addendum Narrative: 2345: Dr. Garcia, urologist from [facility], accepts the patient for transfer.
--- NOTE | 2025-01-03 23:46 | PC.NURSE ---
[facility] ACCEPTS ED TO ED [facility] REPORT TO BE CALLED AT [phone]
--- NOTE | 2025-01-03 23:46 | PC.NURSE ---
THIS PT IS ACCEPTED TO [facility] BY [facility]. THIS IS A ER:ER TRANSFER AND NUMBER FOR REPORT IS [phone]. DR. MENDOZA WANTS THIS PT NPO AFTER MIDNIGHT.
[2025-01-04 00:14] VITALS: BP 114/81; PULSE 109; RESP 15; O2SAT 99
[2025-01-04] MEDS: HYDROmorphone INJ 2 MG/ML VIAL 1 MG IVP (00:37)
[2025-01-04 01:49] VITALS: BP 136/92; PULSE 105; RESP 16; TEMP 36.4; O2SAT 98
== END 2025-01-04 01:53 | disposition short-term general hospital (02) ==
PROVIDERS: Emergency Provider Family Medicine
DX: N48.89 Other specified disorders of penis (principal); D64.9 Anemia, unspecified; I10 Essential (primary) hypertension; E78.5 Hyperlipidemia, unspecified; Z90.79 Acquired absence of other genital organ(s); C67.9 Malignant neoplasm of bladder, unspecified
CPT/HCPCS: 51702; 36415; 74177; 80053; 81001; 85025; 86850; 86900; 86901; 87086; 96361; 96365; 96375; 96376; 99284; A4314; A4649; J0696; J1171; J2270; J2543; J3490; J7030; Q9967

== ENCOUNTER 2025-01-11 20:49 | Emergency (ER) | payer OTHER, SELFPAY ==
[2025-01-11 20:50] VITALS: BP 139/80; PULSE 120; RESP 18; TEMP 36.7; O2SAT 98
[2025-01-11 20:56] VITALS: PULSE 130; RESP 20; O2SAT 98; BMI 23.1
[2025-01-11 21:00] VITALS: PULSE 122; RESP 20; TEMP 38; O2SAT 98
[2025-01-11 21:02] VITALS: BP 101/75; PULSE 124; RESP 16; TEMP 38; O2SAT 97
--- NOTE | 2025-01-11 23:01 | XR_ITS ---
Examination: AP chest single view FINDINGS: AP portable upright chest single view Date and time: January 11, 2025 1107 hours INDICATIONS: Chest pain and shortness of breath today. FINDINGS: Normal heart size. Lungs are clear. Osseous structures are intact IMPRESSION: No active disease
--- NOTE | 2025-01-11 23:01 | XR_ITS ---
Examination: CT brain head without contrast. 2-D sagittal coronal reconstructions Date and time of exam:December, 0026 hours INDICATIONS: Onset slurred speech today CTDI: vol (mGy):33.1 DLP: (mGycm):1148. Technique: Multiple CT axial sections of the brain have been obtained, 5 mm slice thickness. Contrast has not been administered. 2-D sagittal, coronal reconstructions have been obtained Low dose protocols were performed. One or more of the following dose reduction techniques were used; automated exposure control, adjustment of the mA and/or KV according to patient size, use of iterative reconstruction technique. Findings: No significant ventricular enlargement. Intra-axial or extra-axial hemorrhage density is not seen. No mass effect or midline shift Basal cisterns are not remarkable. Fourth ventricle is midline. Cranial vault intact. Impression: Negative for acute hemorrhage, mass effect or midline shift Advise clinical correlation follow up accordingly
--- NOTE | 2025-01-11 23:01 | EKG_ITS ---
[facility] Test Date: 2025-01-11 Pat Name: RUSTY GORDON Department: Room: - Gender: Male Diabetes Nurse: : 1960 Requested By: Silas Neely Order Number: [id number] Reading MD: Silas Neely Measurements Intervals [place] Rate: 108 P: 67 WI: 171 QRS: 41 QRSD: 86 T: 45 QT: 318 QTc: 428 Interpretive Statements SINUS TACHYCARDIA ABNORMAL RHYTHM ECG Compared to ECG 10/25/2024 08:39:57 Sinus rhythm no longer present /store/S0/[id number].pdf
[2025-01-11 23:10] VITALS: BP 122/93; PULSE 119; RESP 18; TEMP 36.8; O2SAT 97
--- NOTE | 2025-01-11 23:35 | PD.EDFEVER ---
ED Fever RME/HPI General Chief Complaint: General Adult/Misc Complain Stated Complaint: STUTTERING Time Seen by Provider: 01/11/25 22:53 Arrival date/time: 01/11/25 20:49 RME / HPI RME / HPI Narrative: See MDM for Dr. Muñoz's HPI Documentation. Related Data Home Medications ?Medication ?Instructions ?Recorded ?Confirmed atorvastatin 20 mg tablet 20 mg PO QPM 09/14/22 10/25/24 famotidine 20 mg tablet 20 mg PO BID 09/14/22 10/25/24 tamsulosin 0.4 mg capsule 0.4 mg PO QDAY 09/14/22 10/25/24 lisinopril 5 mg tablet 5 mg PO DAILY 10/25/24 10/25/24 Previous Rx's ?Medication ?Instructions ?Recorded docusate sodium 100 mg capsule 100 mg PO BID #40 caps 10/26/24 (Colace) hydrocodone 5 mg-acetaminophen 325 1 tab PO Q6H PRN pain (scale score 10/26/24 mg tablet 7-10) #20 tabs ibuprofen 600 mg tablet 600 mg PO Q8H PRN pain (scale 10/26/24 score 4-6) #15 tabs ibuprofen 800 mg tablet 800 mg PO Q8H PRN pain #30 tabs 11/18/24 sulfamethoxazole 800 1 tab PO BID #20 tabs 11/18/24 mg-trimethoprim 160 mg tablet (Bactrim DS) amoxicillin 875 mg-potassium 1 tab PO BID 7 days #14 tabs 01/12/25 clavulanate 125 mg tablet kdleitoi-lioltr-SO-thonzonm 3.3 4 drp otic (ear) QID 7 days #10 mL 01/12/25 mg-3 mg-10 mg-0.5 mg/mL ear drops,susp (Cortisporin-TC) Allergies Allergy/AdvReac Type Severity Reaction Status Date / Time No Known Allergies Allergy Verified 01/11/25 20:55 Review of Systems Review of Systems Systems Reviewed: All systems reviewed, normal except as documented Past Medical History Past Medical History CARDIAC: Positive Hypercholesterolemia and Hypertension GASTROINTESTINAL: Positive Gastrointestinal Disorders, Hepatitis, Hemorrhoids and Gastroesophageal Reflux Disease GENITOURINARY: Positive Genitourinary Disorders, Kidney Stones, Inguinal Hernia and Prostate Cancer MUSCULOSKELETAL: Positive Musculoskeletal Disorders, Arthritis and Degenerative Disk Disease ENT: Positive Glaucoma and Blind OTHER HISTORY: Positive Hospitalization, Blood Transfusions, Chicken Pox, Measles, Mumps, Cancer and Prostate Cancer Surgical History SURGICAL: Positive Eye Surgery, Tonsillectomy, Transurethral Resection and Joint Replacement Physical Exam Narrative Physical exam: See MDM for Dr. Muñoz's Physical Exam Documentation. ED Exam Narrative Physical exam: See MDM for Dr. Muñoz's Physical Exam Documentation. Course Course Course Narrative: CXR was ordered for determining the etiology of shortness of breath. Quality Measures none Orders Category Date Time Status Bedside COVID-19 Antigen Test NOW Care 01/11/25 23:00 Completed Bedside Influenza A&B Antigen Test NOW Care 01/11/25 23:00 Completed EKG (ED ONLY) *Do not use* NOW Care 01/11/25 23:01 Completed Saline [Insert IV] NOW Care 01/11/25 23:[address] head/brain wo con Stat Exams 01/11/25 23:01 Completed EKG (ED Only) Stat Exams 01/11/25 23:01 Draft XR chest 1V portable Stat Exams 01/11/25 23:01 Completed BNP [B-Type Natriuretic Peptide] Stat Lab 01/11/25 23:38 Completed Beta Hydroxybutyrate Stat Lab 01/11/25 23:38 Completed Bilirubin,Direct Stat Lab 01/11/25 23:38 Completed Blood Culture (Lab) Stat Lab 01/11/25 23:38 Results CBC Stat Lab 01/11/25 23:38 Completed CK [Creatine Kinase] Stat Lab 01/11/25 23:38 Completed CMP [Comprehensive Metabolic Panel] Stat Lab 01/11/25 23:38 Completed CRP [C-Reactive Protein] Stat Lab 01/11/25 23:38 Completed ESR [Sed Rate (ESR)] Stat Lab 01/11/25 23:38 Completed Lactate (Lactic Acid) Stat Lab 01/11/25 23:38 Completed Magnesium Stat Lab 01/11/25 23:38 Completed Procalcitonin Stat Lab 01/11/25 23:38 Completed TSH [Thyroid Stimulating Hormone] Stat Lab 01/11/25 23:38 Completed Troponin I Stat Lab 01/11/25 23:38 Completed UA, C/S IF [Urinalysis, C/S if Indicated] Stat Lab 01/11/25 23:27 Completed HYDROcodone*/APAP 5/325 [Adair 5/325] Med 01/11/25 23:11 Discontinued 2 tab PO X1 ONE Ketorolac Inj [Toradol Inj] Med 01/11/25 23:11 Discontinued 15 mg IVP X1 ONE Ondansetron Inj [Zofran Inj] Med 01/11/25 23:11 Discontinued 4 mg IVP X1 ONE Sodium Chloride 0.9% 1000 ml [Ns] 1,000 ml Med 01/11/25 23:11 Discontinued IV 999 mls/hr cefTRIAXone/D5w 1gm IV premix [Rocephin/D5w 1gm IV Med 01/11/25 23:11 Discontinued premix] 1 gm in 50 ml IV X1 Vital Signs Vital signs: Vital Signs Temperature 98.0 F 01/11/25 20:50 Pulse Rate 120 H 01/11/25 20:50 Respiratory Rate 18 01/11/25 20:50 Blood Pressure 139/80 H 01/11/25 20:50 Pulse Oximetry (%) 98 01/11/25 20:50 Oxygen Delivery Method Room Air 01/11/25 20:50 Fever MDM Narrative MDM Narrative:: Scribe Attestation: I, Emily Drummond, am scribing for and in the presence of Dr. Muñoz. This section includes all my notes and documentations, including HPI, PE, and ED course. Silas Muñoz MD HPI: 64 y/o male BIBA from [facility] presents with stuttering for a week. No visual impairment. No loss of power in arms or legs. No CP or SOB. No other complaints. ROS: All negative except as documented in HPI. Physical Exam: General: Alert and oriented. No acute distress. Fever noted. Eyes: Conjunctivae and lids clear. EOMI. PERRL. ENT: No nasal congestion. Pharynx normal. Right auditory canal edematous with erythema and tenderness. Right TM erythematous with bulging and loss of landmarks. Neck: Supple. No carotid bruit. No JVD. Heart: RRR. Lungs: No respiratory distress. Good air movement. No rhonchi, wheezing, rales. Chest: No tenderness. Abdomen: Soft and nontender. Skin: Warm and dry. Neuro: Alert and oriented X 3. Cranial Nerves II-XII grossly intact. No peripheral motor deficits. I reviewed EMS and alf notes. I reviewed all diagnostic test results: My interpretation of the EKG: Sinus tachycardia (108 bpm) with no ST-T changes. My interpretation of the chest x-ray is: NAD. My review of the Head/Brain CT report is: NAD. Blood tests and urine tests unremarkable. Covid/Influenza: Negative. At this point, diagnoses include: Infection of right ear. Treatment here included: Rocephin 1 G, Adair 5/325, Toradol 15 mg, Zofran 4 mg, IVF. Recommended outpatient care. Based on my best medical judgment, made decision no further evaluation or treatment indicated at this time. Patient understands and agrees to the discharge instructions customized and printed, see below. Discharge Instructions from Dr. Muñoz printed for you: 1. After extensive evaluation, there is no life-threatening condition. Such as stroke or brain tumor or heart attack. 2. For your right ear infection, take Augmentin and use the eardrops as prescribed. There is no other serious infection. 3. See a private doctor on 01/15/2025 for recheck. Ask to review all test results and official radiology reports, to make sure you receive all necessary follow-ups and monitoring. If you are not getting better, ask for ENT referral. Unfortunately, this hospital has no ENT specialist. 4. Seek immediate medical care with worsening or with any concerns. Silas Muñoz MD Patient data External records reviewed:: [facility] previous records (Reviewed prior ED records from 01/03/25. Patient was seen for Anemia.) Clinical information provided by:: patient Social determinants that could affect healthcare access:: none Patient has the following chronic illnesses:: Hypercholesterolemia, Hypertension, Hepatitis, Hemorrhoids, Gastroesophageal Reflux Disease, Kidney Stones, Inguinal Hernia, Prostate Cancer, Arthritis and Degenerative Disk Disease How is presenting disease/condition affected by chronic disease/condition?: exacerbated by Evaluation data The following diagnostics were reviewed and interpreted by me:: EKG tracing(s) (My interpretation of the EKG: Sinus tachycardia (108 bpm) with no ST-T changes. Silas Muñoz MD) Lab and/or radiology exams considered but not ordered:: None Interpretation Summary: I reviewed all diagnostic test results: My interpretation of the EKG: Sinus tachycardia (108 bpm) with no ST-T changes. My interpretation of the chest x-ray is: NAD. My review of the Head/Brain CT report is: NAD. Blood tests and urine tests unremarkable. Covid/Influenza: Negative. Medications / Prescriptions Medications or Prescriptions considered but not ordered:: None Medication administrations:: Medication Administration History Discontinued Medications Hydrocodone Bitart/Acetaminophen (Hydrocodone/Apap 5/325 Tablet) 2 tab PO X1 ONE Stop: 01/11/25 23:12 Last Admin: 01/11/25 23:45 Dose: 2 tab Documented By: ALVARO Ceftriaxone Sodium/Dextrose (Rocephin/D5w 1gm Iv Premix) 1 gm in 50 mls @ 100 mls/hr IV X1 ONE Stop: 01/11/25 23:40 Last Infusion: 01/12/25 00:22 Dose: Infused Documented By: Admin: 01/11/25 23:49 Dose: 100 mls/hr Documented By: ALVARO Sodium Chloride (Ns) 1,000 mls @ 999 mls/hr IV .Q1H1M ONE Stop: 01/12/25 00:11 Last Infusion: 01/12/25 01:00 Dose: Infused Documented By: Admin: 01/11/25 23:45 Dose: 999 mls/hr Documented By: ALVARO Ketorolac Tromethamine (Ketorolac Inj 30 Mg/Ml Vial) 15 mg IVP X1 ONE Stop: 01/11/25 23:12 Last Admin: 01/11/25 23:47 Dose: 15 mg Documented By: ALAVRO Ondansetron HCl (Ondansetron Inj 2 Mg/Ml Inj 2 Ml) 4 mg IVP X1 ONE; Protocol Stop: 01/11/25 23:12 Last Admin: 01/11/25 23:45 Dose: 4 mg Documented By: ALVARO Rocephin 1 G, Adair 5/325, Toradol 15 mg, Zofran 4 mg, IVF Consultations Consultation(s) initiated? (list below): No Diagnosis Fever Differential Diagnosis: cellulitis, fever of unknown origin, gastroenteritis, community acquired pneumonia, pyelonephritis, viral infection, sepsis and influenza Most likely diagnosis given after review of the tests above:: Infection of right ear Admission Indicated Admission indicated?: not indicated Explain why admission is indicated or not indicated:: With significant improvement and no condition needing emergent intervention, there was no indication for admission. Admission Request Was there a request for admission?: No Disposition Plan Disposition Plan: Discharge Discharge Attestation Discharge Attestation: The patient and all family members were given an opportunity to ask questions and understood the discharge instructions. Discharge instructions specifically effects, indications for sooner follow up or return to the emergency department, and the expected course of current diagnosis. Patient condition: Stable Discharge Plan Plan Patient Disposition: HOME (Self Care) Prescriptions/Referrals Prescriptions/Med Rec: New Cortisporin-TC 3.3-3-10-0.5 mg/mL drops,suspension 4 drp otic (ear) QID 7 Days Qty: 10 0RF amoxicillin-pot clavulanate 875-125 mg tablet 1 tab PO BID 7 Days Qty: 14 0RF No Action atorvastatin 20 mg Tablet 20 mg PO QPM famotidine 20 mg Tablet 20 mg PO BID tamsulosin 0.4 mg Capsule 0.4 mg PO QDAY lisinopril 5 mg tablet 5 mg PO DAILY Patient Comments: TAKE 1 TABLET BY MOUTH EVERY DAY docusate sodium [Colace] 100 mg capsule 100 mg PO BID Qty: 40 0RF ibuprofen 600 mg tablet 600 mg PO Q8H PRN (Reason: pain (scale score 4-6)) Qty: 15 0RF hydrocodone-acetaminophen 5-325 mg tablet 1 tab PO Q6H MDD 4 PRN (Reason: pain (scale score 7-10)) Qty: 20 0RF sulfamethoxazole-trimethoprim [Bactrim DS] 800-160 mg tablet 1 tab PO BID Qty: 20 0RF ibuprofen 800 mg tablet 800 mg PO Q8H PRN (Reason: pain) Qty: 30 0RF Referrals: No Primary/Family,Physician [Primary Care Provider] - In 1 week Problem List Clinical Impression: Infection of right ear Patient/Caregiver Discharge Instructions Discharge Activity: activity as tolerated Education Materials: ED Otitis Media Antibiotic ..., ED External Ear Infection (Adult) Additional Instructions: Discharge Instructions from Dr. Muñoz printed for you: 1. After extensive evaluation, there is no life-threatening condition. Such as stroke or brain tumor or heart attack. 2. For your right ear infection, take Augmentin and use the eardrops as prescribed. There is no other serious infection. 3. See a private doctor on 01/15/2025 for recheck. Ask to review all test results and official radiology reports, to make sure you receive all necessary follow-ups and monitoring. If you are not getting better, ask for ENT referral. Unfortunately, this hospital has no ENT specialist. 4. Seek immediate medical care with worsening or with any concerns. Print Language: Moldovan Stand Alone Forms: [employer] Award Info., Patient Portal Info Letter
[2025-01-11 23:39] LABS: Collection Type, Urine Clean Catch
[2025-01-11] MEDS: SODIUM CHLORIDE 0.9% 1000 ML 1,000 ML 999 ML IV (23:45)
[2025-01-11] MEDS: ONDANSETRON INJ 2 MG/ML INJ 2 ML 4 MG IVP (23:45)
[2025-01-11] MEDS: HYDROcodone/APAP 5/325 TABLET 2 TAB PO (23:45)
[2025-01-11 23:47] LABS: Bilirubin,Urine Negative (Negative); Blood,Urine Trace (Negative); Clarity,Urine Clear (Clear/Hazy); Color,Urine Lt-Yellow (Lt Yel-Yel); Culture Indicated,Urine Not Indicated; Glucose, Urine Negative (Negative); Ketones,Urine Negative (Negative); Leukocyte Esterase,Urine Negative (Negative); Nitrite,Urine Negative (Negative); PH,Urine 7.5 (5.0-7.0); Protein,Urine 1+ (Neg - Trace); RBC,Urine 18 /hpf (0-3); Specific Gravity,Urine 1.020 (1.001-1.035); Squamous Epithelial Cell,Urine < 1 /hpf (0-5); Urobilinogen,Urine Negative mg/dL (0.0-1.0); WBC,Urine 3 /hpf (0-5)
[2025-01-11] MEDS: KETOROLAC INJ 30 MG/ML VIAL 15 MG IVP (23:47)
[2025-01-11] MEDS: cefTRIAXone/D5w 1gm IV premix 1 GM/50 ML BAG IV (23:49)
[2025-01-12 00:05] LABS: Lactate (Lactic Acid) 1.5 mMol/L (0.4-2.0)
[2025-01-12 00:06] LABS: Basophils # (Auto) 0.1 Thou/mm3 (0.0-0.2); Basophils % (Auto) 1 % (0-2.5); Eosinophils # (Auto) 0.2 Thou/mm3 (0.0-0.5); Eosinophils % (Auto) 2 % (0-10); Hematocrit 29.9 % (41.0-53.0); Hemoglobin 9.6 g/dL (13.5-16.0); Immature Granulocytes Auto 0.08 Thou/mm3 (0.00-0.00); Lymphocytes # (Auto) 1.7 Thou/mm3 (1.0-4.8); Lymphocytes % (Auto) 19 % (10-50); Mean Corpuscular HGB Conc 32.1 g/dl (31.0-37.0); Mean Corpuscular Hemoglobin 30.1 pg (25.0-35.0); Mean Corpuscular Volume 94 fL (80-100); Monocytes # (Auto) 1.1 Thou/mm3 (0.0-0.8); Monocytes % (Auto) 12 % (0-12); Neutrophils # (Auto) 5.7 Thou/mm3 (1.8-7.7); Neutrophils % (Auto) 65 % (37-80); Nucleated Red Blood Cell # 0.00 Thou/mm3 (0.00-0.00); Nucleated Red Blood Cell % 0 /100 WBC (0); Platelet Count 486 Thou/mm3 (140-440); RDW Standard Deviation 50.8 fL (35.1-43.9); Red Blood Count 3.19 Miln/mm3 (4.50-5.90); White Blood Count 8.8 Thou/mm3 (3.8-10.6)
[2025-01-12 00:18] LABS: Sed Rate (ESR) 9 mm/hr (0-20)
[2025-01-12 00:36] LABS: B-Type Natriuretic Peptide < 20 pg/mL (0-100)
[2025-01-12 01:01] LABS: Alanine Aminotransferase 36 U/L (10-49); Albumin, Serum 3.8 gm/dL (3.4-4.8); Albumin/Globulin Ratio 1.8 (1.2-2.2); Alkaline Phosphatase 66 U/L (46-116); Anion Gap 6 (7-16); Aspartate Amino Transferase 13 U/L (0-34); BUN/Creatinine Ratio 17 Ratio (12-20); Bilirubin,Direct < 0.1 mg/dL (0.0-0.3); Bilirubin,Total 0.2 mg/dL (0.3-1.2); Blood Urea Nitrogen 12 mg/dL (9-23); Calcium 8.9 mg/dL (8.3-10.6); Calcium (Corrected) 9.1 mg/dL (8.5-10.1); Carbon Dioxide 26.8 mMol/L (20.0-31.0); Chloride 108 mMol/L (98-107); Creatine Kinase < 15 U/L (34-171); Creatinine (Component) 0.7 mg/dL (0.6-1.3); Estimated Creatinine Clearance 98.4 mL/min (>60); Globulin 2.1 gm/dL (2.3-3.5); Glucose 93 mg/dL (74-106); Magnesium 2.1 mg/dL (1.6-2.6); Osmolality,Calculated 280 (275-295); Potassium 3.9 mMol/L (3.4-5.1); Procalcitonin 0.14 ng/ml (0.0-0.49); Sodium 141 mMol/L (136-145); Thyroid Stimulating Hormone 2.41 uIU/mL (0.55-4.78); Total Protein 5.9 gm/dL (5.7-8.2); Troponin I < 0.020 ng/mL (0.0-0.045); eGFR > 60 See Note
--- NOTE | 2025-01-12 01:10 | PRELIM_ITS ---
CT scan of the head without intravenous contrast (axial sections with sagittal and coronal reformats) January 12, 2025 0026 hours Clinical history: Speech impairment No prior study is available for comparison. Findings: There is no evidence of intracranial hemorrhage, mass effect or midline shift. There are mild periventricular white matter hypodensities, likely representing chronic small vessel ischemia. There is mild volume loss. The calvarium is unremarkable. There is mild mucosal thickening in the right maxillary sinus.The mastoid air cells and the other visualized paranasal sinuses are clear. Impression: No evidence of intracranial hemorrhage, mass effect or midline shift. Periventricular chronic small vessel ischemia and volume loss. Report Electronically Signed By: Luis Enrique Berumen 01/12/2025 1:09:24 AM [EST]
[2025-01-12 01:20] LABS: C-Reactive Protein < 0.5 mg/dL (0.0-0.9)
[2025-01-12 01:46] LABS: Beta Hydroxybutyrate 0.0 mmol/L (<0.6)
[2025-01-12 02:09] VITALS: BP 113/96; PULSE 86; RESP 16; TEMP 36.4; O2SAT 99
[2025-01-12 05:10] VITALS: BP 123/62; PULSE 72; RESP 16; TEMP 36.7; O2SAT 98
== END 2025-01-12 05:22 | disposition skilled nursing facility (03) ==
PROVIDERS: Emergency Provider Emergency Medicine
DX: H66.91 Otitis media, unspecified, right ear (principal); R00.0 Tachycardia, unspecified; R47.9 Unspecified speech disturbances; I10 Essential (primary) hypertension; E78.00 Pure hypercholesterolemia, unspecified; K21.9 Gastro-esophageal reflux disease without esophagitis; M19.90 Unspecified osteoarthritis, unspecified site; K73.9 Chronic hepatitis, unspecified; N20.0 Calculus of kidney; C61 Malignant neoplasm of prostate; Z79.899 Other long term (current) drug therapy
CPT/HCPCS: 36415; 70450; 71045; 80053; 81001; 82010; 82248; 82550; 83605; 83735; 83880; 84145; 84443; 84484; 85025; 85652; 86140; 87040; 87400; 87811; 93005; 99283; J0696; J1885; J2405; J7030; A9270

== ENCOUNTER 2025-01-20 15:47 | Emergency (ER) | payer OTHER, SELFPAY ==
[2025-01-20 15:58] VITALS: BP 149/81; PULSE 110; RESP 18; TEMP 37.6; O2SAT 100
[2025-01-20 16:03] VITALS: BMI 24.3
--- NOTE | 2025-01-20 16:46 | XR_ITS ---
Examination: Knee, left. , 3 views Technique: Knee AP, lateral, oblique 3 views Date and time of exam: January 20, 2025, 1738 hrs. Indications: Left knee pain today. Findings: Advanced narrowing and osteoarthritis medial and patellofemoral joints. Large knee effusion, seen with internal derangement of the knee or septic arthritis, clinical correlation advised. No fracture. No yosef cortical bone destruction. Impression: Advanced narrowing and osteoarthritis medial patellofemoral joints. Large knee effusion, seen with internal derangement of the knee or septic arthritis, clinical correlation advised.
--- NOTE | 2025-01-20 16:47 | XR_ITS ---
Examination: AP chest single view Technique: AP portable semiupright chest single view. Date and time: January 20, 2025, 1733 hrs., Comparison January 11, 2025 Indications: Chest pain shortness of breath beginning 3 days ago. Findings: Normal heart size. Lungs are clear. The osseous structures are intact. Impression: No active disease.
--- NOTE | 2025-01-20 17:02 | PD.EDLOWEX ---
Lower Extremity Injury RME/HPI General Chief Complaint: Extremity Injury, Lower Stated Complaint: KNEE PAIN Time Seen by Provider: 01/20/25 16:28 Arrival date/time: 01/20/25 15:47 RME / HPI RME / HPI Narrative: 64-year-old male patient [facility]. Patient's been having fever 101.3 in the [facility], earlier today associated with left knee pain and swelling. Patient told me that he is unable to ambulate due to pain. Yesterday he is able to ambulate with physical therapy in the [facility]. Incident happened earlier today. Denies any trauma denies any fall denies any other complaints. Denies any sore throat cough, chest pain or abdominal pain. In the triage patient was noted to have a pulse rate of 110 temperature of 99.7. Related Data Home Medications ?Medication ?Instructions ?Recorded ?Confirmed atorvastatin 20 mg tablet 20 mg PO QPM 09/14/22 10/25/24 famotidine 20 mg tablet 20 mg PO BID 09/14/22 10/25/24 tamsulosin 0.4 mg capsule 0.4 mg PO QDAY 09/14/22 10/25/24 lisinopril 5 mg tablet 5 mg PO DAILY 10/25/24 10/25/24 Previous Rx's ?Medication ?Instructions ?Recorded docusate sodium 100 mg capsule 100 mg PO BID #40 caps 10/26/24 (Colace) hydrocodone 5 mg-acetaminophen 325 1 tab PO Q6H PRN pain (scale score 10/26/24 mg tablet 7-10) #20 tabs ibuprofen 600 mg tablet 600 mg PO Q8H PRN pain (scale 10/26/24 score 4-6) #15 tabs ibuprofen 800 mg tablet 800 mg PO Q8H PRN pain #30 tabs 11/18/24 sulfamethoxazole 800 1 tab PO BID #20 tabs 11/18/24 mg-trimethoprim 160 mg tablet (Bactrim DS) naproxen 500 mg tablet (Naprosyn) 500 mg PO BID #20 tabs 01/20/25 Allergies Allergy/AdvReac Type Severity Reaction Status Date / Time No Known Allergies Allergy Verified 01/11/25 20:55 Review of Systems Review of Systems Narrative Review of Systems: Review of system reviewed and within normal limits except mentioned in HPI ED Exam Narrative Physical exam: VITAL SIGNS: Reviewed. GENERAL APPEARANCE: Alert and interactive, follows commands, no acute distress, HEAD AND FACE: Non-traumatic. ENT: PERRL, pink conjunctivitis, eyelid no trauma, Mucous membrane moist. NECK: Supple, nontender, no nuchal rigidity. CHEST: No tenderness, no crepitus, no paradoxical movement, no retractions. LUNGS: Clear, well ventilated, symmetric, no rales, no wheezing, no ronchi, no stridor, good breath sounds bilaterally. HEART: Regular rate, regular rhythm, no murmur, no gallops. ABDOMEN: Soft, positive bowel sounds, nondistended, no guarding, nontender, no rebound, no masses, RECTAL: Deferred. GENITAL: Deferred. NEUROLOGICAL: Gross motor function intact sensory function intact, Appropriate for age. MUSCULOSKELETAL: low back nontender, full range of motion. EXTREMITIES: Left knee swelling, + mild erythema, warm to touch,, with positive fluid wave test on the suprapatellar area, limited range of motion. Distal neurovascular status intact SKIN: Color pink, dry, no rash, no lacerations, no abrasions, no contusions. LYMPHATICS: Deferred. Course Quality Measures none Orders Category Date Time Status Apply knee immobilizer NOW Care 01/20/25 23:35 Active Bedside COVID-19 Antigen Test NOW Care 01/20/25 16:49 Active Bedside Influenza A&B Antigen Test NOW Care 01/20/25 16:49 Completed XR chest 1V Stat Exams 01/20/25 16:47 Completed XR knee limited LT 2V Stat Exams 01/20/25 16:46 Completed Body Fld Culture & Gram Stain Routine Lab 01/20/25 20:00 Results CBC Stat Lab 01/20/25 17:38 Completed CRP [C-Reactive Protein] Stat Lab 01/20/25 17:38 Completed Comprehensive Metabolic Panel Stat Lab 01/20/25 17:38 Completed ESR [Sed Rate (ESR)] Stat Lab 01/20/25 17:38 Completed Glucose,Synovial Fluid* Stat Lab 01/20/25 20:00 Received Partial Thromboplastin Time Stat Lab 01/20/25 17:38 Completed Procalcitonin Stat Lab 01/20/25 17:38 Completed Prothrombin Time with INR Stat Lab 01/20/25 17:38 Completed Synovial Fld, Specific [place] Stat Lab 01/20/25 20:00 Completed Synovial Fluid, Cell Cnt/Diff Routine Lab 01/20/25 20:00 Completed Synovial Fluid, Crystals* Routine Lab 01/20/25 20:00 Received Uric Acid Stat Lab 01/20/25 17:38 Completed Urinalysis, C/S if Indicated Stat Lab 01/20/25 17:38 Completed Morphine Inj Med 01/20/25 16:54 Discontinued 4 mg IVP X1 ONE Morphine Inj Med 01/20/25 21:39 Discontinued 4 mg IVP X1 ONE Naproxen [Naprosyn] Med 01/20/25 23:35 Once 500 mg PO X1 ONE Ondansetron Odt [Zofran Odt] Med 01/20/25 16:54 Discontinued 4 mg PO X1 ONE Piper/Tazo 3.375 gm Premix [Zosyn] Med 01/20/25 20:01 Discontinued 3.375 gm in 50 ml IV X1 Vancomycin Inj 1,000 mg Med 01/20/25 20:01 Discontinued Sodium Chloride 0.9% 250 ml [Ns] 250 ml IV X1 Vital Signs Vital signs: Vital Signs Temperature 99.7 F 01/20/25 15:58 Pulse Rate 110 H 01/20/25 15:58 Respiratory Rate 18 01/20/25 15:58 Blood Pressure 149/81 H 01/20/25 15:58 Pulse Oximetry (%) 100 01/20/25 15:58 Oxygen Delivery Method Room Air 01/20/25 15:58 Extremity Injury, Lower MDM Narrative MDM Narrative:: 64-year-old male patient came [facility] regarding fever. Patient's been having [facility] 101.3 in the [facility], earlier today associated with left knee pain and swelling. Patient told me that he is unable to ambulate due to pain. Yesterday he is able to ambulate with physical therapy in the [facility]. Incident happened earlier today. Denies any trauma denies any fall denies any other complaints. Denies any sore throat cough, chest pain or abdominal pain. In the triage patient was noted to have a pulse rate of 110 temperature of 99.7. Clinically patient is having knee joint effusion, I did aseptic technique of joint knee aspiration, was able to aspirate 60 cc of yellowish colored joint fluids, and patient verbalized significant improvement of pressure like symptoms. Patient tolerated the procedure well. Sterile dressing applied. Laboratory workup significant for ESR 21, Pro-Dinesh is normal C-reactive 4.5 [place] [address], synovial RBC 8000, synovial polynuclear WBC 92%. Chest x-ray came back unremarkable. X-ray of the knee showed Advanced narrowing and osteoarthritis medial patellofemoral joints. Large knee effusion, seen with internal derangement of the knee or septic arthritis, clinical correlation advised. Patient received morphine, Zofran, IV Zosyn, IV vancomycin. Patient is to be transferred to higher level of care with an an orthopedic surgeon on-call. from [facility] discussed the case, and told me that he need synovial crystal and Gram staining results before he will decide to accept the patient for transfer. Dr Gifford talked to him again with results of Gram staining for the recommendation. Patient was placed on a knee immobilizer and Yomi wrap applied Patient was advised to return to emergency room in 48 hours for reevaluation. Patient will be sent home on naproxen Patient data External records reviewed:: None Clinical information provided by:: patient Social determinants that could affect healthcare access:: none Patient has the following chronic illnesses:: Hypertension How is presenting disease/condition affected by chronic disease/condition?: exacerbated by Evaluation data The following diagnostics were reviewed and interpreted by me:: lab results and radiology exam(s) Lab and/or radiology exams considered but not ordered:: None Interpretation Summary: See results MDM Medications / Prescriptions Medications or Prescriptions considered but not ordered:: None Medication administrations:: Medication Administration History Naproxen (Naproxen 250 Mg Tablet) 500 mg PO X1 ONE Stop: 01/20/25 23:36 Discontinued Medications Vancomycin HCl 1,000 mg/ (Sodium Chloride) 250 mls @ 150 mls/hr IV X1 ONE Stop: 01/20/25 21:40 Last Infusion: 01/20/25 22:58 Dose: Infused Documented By: Admin: 01/20/25 20:46 Dose: 150 mls/hr Documented By: IRINEO Piperacillin/Tazobactam/Dextrose (Zosyn) 3.375 gm in 50 mls @ 100 mls/hr IV X1 ONE Stop: 01/20/25 20:30 Last Infusion: 01/20/25 21:12 Dose: Infused Documented By: Admin: 01/20/25 20:43 Dose: 100 mls/hr Documented By: IRINEO Morphine Sulfate (Morphine Sulf Inj 10 Mg/Ml Vial) 4 mg IVP X1 ONE Stop: 01/20/25 16:55 Last Admin: 01/20/25 17:31 Dose: 4 mg Documented By: EF Morphine Sulfate (Morphine Sulf Inj 10 Mg/Ml Vial) 4 mg IVP X1 ONE Stop: 01/20/25 21:40 Last Admin: 01/20/25 21:58 Dose: 4 mg Documented By: EF Ondansetron HCl (Ondansetron Odt 4 Mg Tabrap) 4 mg PO X1 ONE; Protocol Stop: 01/20/25 16:55 Last Admin: 01/20/25 17:31 Dose: 4 mg Documented By: EF Zosyn, morphine Zofran Vanco naproxen Consultations Consultation(s) initiated? (list below): Yes Consultation #1 (Physician, Specialty, Details): Orthopedic surgeon from [facility] Diagnosis Extremity Injury, Lower Differential Diagnosis: other (Septic knee, knee effusion, knee pain) Most likely diagnosis given after review of the tests above:: Knee effusion left Admission Indicated Admission indicated?: not indicated Admission Request Was there a request for admission?: No Disposition Plan Disposition Plan: Discharge Discharge Attestation Discharge Attestation: The patient was given an opportunity to ask questions and understood the discharge instructions. Discharge instructions specifically effects, indications for sooner follow up or return to the emergency department, and the expected course of current diagnosis. Patient condition: Stable Discharge Plan Plan Patient Disposition: HOME (Self Care) Discharge Disposition comment: Stable Prescriptions/Referrals Prescriptions/Med Rec: New naproxen [Naprosyn] 500 mg tablet 500 mg PO BID Qty: 20 0RF No Action atorvastatin 20 mg Tablet 20 mg PO QPM famotidine 20 mg Tablet 20 mg PO BID tamsulosin 0.4 mg Capsule 0.4 mg PO QDAY lisinopril 5 mg tablet 5 mg PO DAILY Patient Comments: TAKE 1 TABLET BY MOUTH EVERY DAY docusate sodium [Colace] 100 mg capsule 100 mg PO BID Qty: 40 0RF ibuprofen 600 mg tablet 600 mg PO Q8H PRN (Reason: pain (scale score 4-6)) Qty: 15 0RF hydrocodone-acetaminophen 5-325 mg tablet 1 tab PO Q6H MDD 4 PRN (Reason: pain (scale score 7-10)) Qty: 20 0RF sulfamethoxazole-trimethoprim [Bactrim DS] 800-160 mg tablet 1 tab PO BID Qty: 20 0RF ibuprofen 800 mg tablet 800 mg PO Q8H PRN (Reason: pain) Qty: 30 0RF Referrals: No Primary/Family,Physician [Primary Care Provider] - In 1 week Problem List Clinical Impression: Effusion of knee joint Patient/Caregiver Discharge Instructions Discharge Activity: activity as tolerated Education Materials: ED Knee Effusion Additional Instructions: Thank you for the opportunity for serving you today. You are stable for discharged . You are advised to: Follow-up with your PCP in 1 to 2 days Return to ED for worsening of symptoms Increase oral fluids Take medication as prescribed Wear your knee immobilizer as needed Please return to the emergency room this Wednesday January 22, 2025/ morning for reevaluation Wear your Yomi wrap as needed Elevate your legs as needed Print Language: Jamaican Stand Alone Forms: [employer]ash[employer] Award Info., Patient Portal Info Letter PORSHA/VIVIANA Supervising Physician PORSHA/VIVIANA Supervising Physician: MD Balta
[2025-01-20 17:19] VITALS: BP 126/98; PULSE 100; RESP 15; O2SAT 100
[2025-01-20] MEDS: MORPHINE SULF INJ 10 MG/ML VIAL 4 MG IVP ×2 (17:31→21:58)
[2025-01-20] MEDS: ONDANSETRON ODT 4 MG TABRAP PO (17:31)
[2025-01-20 17:55] LABS: Collection Type, Urine Clean Catch; Squamous Epithelial Cell,Urine 0 /hpf (0-5)
[2025-01-20 18:21] LABS: Basophils # (Auto) 0.1 Thou/mm3 (0.0-0.2); Basophils % (Auto) 1 % (0-2.5); Eosinophils # (Auto) 0.1 Thou/mm3 (0.0-0.5); Eosinophils % (Auto) 1 % (0-10); Hematocrit 30.7 % (41.0-53.0); Hemoglobin 10.0 g/dL (13.5-16.0); Immature Granulocytes Auto 0.07 Thou/mm3 (0.00-0.00); Lymphocytes # (Auto) 1.1 Thou/mm3 (1.0-4.8); Lymphocytes % (Auto) 13 % (10-50); Mean Corpuscular HGB Conc 32.6 g/dl (31.0-37.0); Mean Corpuscular Hemoglobin 30.0 pg (25.0-35.0); Mean Corpuscular Volume 92 fL (80-100); Monocytes # (Auto) 1.5 Thou/mm3 (0.0-0.8); Monocytes % (Auto) 18 % (0-12); Neutrophils # (Auto) 5.8 Thou/mm3 (1.8-7.7); Neutrophils % (Auto) 67 % (37-80); Nucleated Red Blood Cell # 0.00 Thou/mm3 (0.00-0.00); Nucleated Red Blood Cell % 0 /100 WBC (0); Platelet Count 264 Thou/mm3 (140-440); RDW Standard Deviation 47.7 fL (35.1-43.9); Red Blood Count 3.33 Miln/mm3 (4.50-5.90); White Blood Count 8.7 Thou/mm3 (3.8-10.6)
[2025-01-20 18:23] LABS: INR 1.0 (0.9-1.3); Partial Thromboplastin Time 29.2 Seconds (22.0-36.0); Prothrombin Time 11.2 Seconds (9.0-12.2)
[2025-01-20 18:24] LABS: Alanine Aminotransferase 13 U/L (10-49); Albumin, Serum 3.8 gm/dL (3.4-4.8); Albumin/Globulin Ratio 2.0 (1.2-2.2); Alkaline Phosphatase 68 U/L (46-116); Anion Gap 9 (7-16); Aspartate Amino Transferase 12 U/L (0-34); BUN/Creatinine Ratio 19 Ratio (12-20); Bilirubin,Total 0.3 mg/dL (0.3-1.2); Blood Urea Nitrogen 13 mg/dL (9-23); C-Reactive Protein 4.5 mg/dL (0.0-0.9); Calcium 9.3 mg/dL (8.3-10.6); Calcium (Corrected) 9.5 mg/dL (8.5-10.1); Carbon Dioxide 26.2 mMol/L (20.0-31.0); Chloride 105 mMol/L (98-107); Creatinine (Component) 0.7 mg/dL (0.6-1.3); Estimated Creatinine Clearance 98.4 mL/min (>60); Globulin 1.9 gm/dL (2.3-3.5); Glucose 100 mg/dL (74-106); Osmolality,Calculated 279 (275-295); Potassium 3.8 mMol/L (3.4-5.1); Procalcitonin 0.15 ng/ml (0.0-0.49); Sodium 140 mMol/L (136-145); Total Protein 5.7 gm/dL (5.7-8.2); eGFR > 60 See Note
[2025-01-20 18:35] LABS: Bilirubin,Urine Negative (Negative); Blood,Urine Negative (Negative); Clarity,Urine Clear (Clear/Hazy); Color,Urine Colorless (Lt Yel-Yel); Culture Indicated,Urine Not Indicated; Glucose, Urine Negative (Negative); Ketones,Urine Negative (Negative); Leukocyte Esterase,Urine Negative (Negative); Nitrite,Urine Negative (Negative); PH,Urine 7.0 (5.0-7.0); Protein,Urine Negative (Neg - Trace); RBC,Urine < 1 /hpf (0-3); Specific Gravity,Urine 1.006 (1.001-1.035); Urobilinogen,Urine Negative mg/dL (0.0-1.0); WBC,Urine < 1 /hpf (0-5)
[2025-01-20 18:38] LABS: Sed Rate (ESR) 21 mm/hr (0-20)
[2025-01-20 18:46] VITALS: BP 145/89; PULSE 102; RESP 19; TEMP 37.4; O2SAT 100
[2025-01-20] MEDS: PIPER/TAZO 3.375 GM PREMIX 3.375 GM/50 ML BAG IV (20:43)
[2025-01-20] MEDS: Vancomycin Inj 1,000 MG in SODIUM CHLORIDE 0.9% 250 ML 250 ML 150 MG IV (20:46)
[2025-01-20 20:47] VITALS: BP 137/81; PULSE 104; RESP 18; O2SAT 98
[2025-01-20 20:59] LABS: Synovial Fld, Specific Gravity 1.020
[2025-01-20 21:05] LABS: Source,Synovial Fluid Knee; Synovial Fluid Appearance Cloudy; Synovial Fluid Color Straw; Synovial Fluid Mononuclear 8 %; Synovial Fluid Polynuclear 92 %; Synovial Fluid RBC 8000 /cmm
[2025-01-20 21:14] LABS: Synovial Fluid WBC 69280 /cmm
[2025-01-20 21:41] VITALS: BP 159/92; PULSE 102; RESP 18; TEMP 37.7; O2SAT 98
[2025-01-20 21:58] LABS: Uric Acid 4.2 mg/dL (3.7-9.2)
--- NOTE | 2025-01-20 22:16 | PC.NURSE ---
2200 MARCELA CONTACTED AND PKT SENT. 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
--- NOTE | 2025-01-20 23:27 | PC.NURSE ---
2215 PT DECLINED BY MARCELA AT THIS TIME BY DR JAIMES. 2327 DR BLAKE SPEAKING WITH DR JAIMES AT THIS TIME.
--- NOTE | 2025-01-20 23:32 | PD.EDADDENDU ---
Emergency Room Addendum Addendum Narrative: I spoke with orthopedic surgeon at [facility], Dr. Atwood and notified him of the synovial fluid white blood cell count of 69,280 with 92% PMNs. He was also notified of the Gram stain showing no organisms. We cannot test for crystals here that apparently is a send out test. Dr. Atwood's recommendation is to treat this patient with anti-inflammatory medications. The left knee will be placed in a knee immobilizer. Patient will be placed on Naprosyn 500 mg twice a day for the next 10 days. He is to recheck here in the emergency room in 2 days to make sure her overall condition is not worsening. Dr. Atwood does not believe this to be a septic joint.
[2025-01-21] MEDS: NAPROXEN 250 MG TABLET 500 MG PO (00:09)
[2025-01-21 00:10] VITALS: BP 128/80; PULSE 97; RESP 15; O2SAT 100
--- NOTE | 2025-01-21 12:15 | PC.NURSE ---
RECEIVED CALL FROM PT THAT HIS PRESCRIPTION WAS SENT TO [place] AND HE NEEDS IT SENT TO THE [facility] HERE IN [place]. CHARGE NURSE SAID WE WOULD NOT BE ABLE TO MAKE THAT CHANGE BUT THAT THE PHARMAY COULD TRANSFER THE PRESCRIPTION TO [place]. CALLED PT WHO SAID HE WANTED AN ANTIBIOTIC. I READ THE DOCTOR'S NOTE FROM PEST CONTROLLER AND TOLD HIM WHAT IT SAID. HE SAID THAT WAS FINE AND THAT HE WAS NOT GOING TO [employer] [facility]. NOTED.
[2025-01-29 08:54] LABS: Glucose,Synovial Fluid* 37 mg/dL
[2025-02-01 08:21] LABS: Misc Send Out* See Sep Rpt
== END 2025-01-21 00:37 | disposition home or self-care (01) ==
PROVIDERS: Nurse Practitioner Family; Emergency Provider Family Medicine
DX: M25.462 Effusion, left knee (principal); M17.12 Unilateral primary osteoarthritis, left knee
CPT/HCPCS: 20610; 36415; 71045; 73560; 73562; 80053; 81001; 82945; 84145; 84315; 84550; 85025; 85610; 85652; 85730; 86140; 87070; 87205; 87400; 87811; 89051; 96365; 96366; 96375; 96376; 99284; J2270; J2543; J3373; J7050; Q0162; A9270

== ENCOUNTER 2025-03-15 10:20 | Day surgery (SDC) | payer OTHER, SELFPAY ==
[2025-03-14 11:28] VITALS: BMI 25.8
[2025-03-14 11:52] LABS: Collection Type, Urine Clean Catch; Squamous Epithelial Cell,Urine 0 /hpf (0-5)
[2025-03-14 12:42] LABS: Basophils # (Auto) 0.0 Thou/mm3 (0.0-0.2); Basophils % (Auto) 1 % (0-2.5); Eosinophils # (Auto) 0.0 Thou/mm3 (0.0-0.5); Eosinophils % (Auto) 1 % (0-10); Hematocrit 38.2 % (41.0-53.0); Hemoglobin 12.2 g/dL (13.5-16.0); Immature Granulocytes Auto 0.04 Thou/mm3 (0.00-0.00); Lymphocytes # (Auto) 0.6 Thou/mm3 (1.0-4.8); Lymphocytes % (Auto) 10 % (10-50); Mean Corpuscular HGB Conc 31.9 g/dl (31.0-37.0); Mean Corpuscular Hemoglobin 28.2 pg (25.0-35.0); Mean Corpuscular Volume 88 fL (80-100); Monocytes # (Auto) 0.7 Thou/mm3 (0.0-0.8); Monocytes % (Auto) 11 % (0-12); Neutrophils # (Auto) 4.9 Thou/mm3 (1.8-7.7); Neutrophils % (Auto) 78 % (37-80); Nucleated Red Blood Cell # 0.00 Thou/mm3 (0.00-0.00); Nucleated Red Blood Cell % 0 /100 WBC (0); Platelet Count 226 Thou/mm3 (140-440); RDW Standard Deviation 44.3 fL (35.1-43.9); Red Blood Count 4.33 Miln/mm3 (4.50-5.90); White Blood Count 6.3 Thou/mm3 (3.8-10.6)
[2025-03-14 12:44] LABS: Bilirubin,Urine Negative (Negative); Blood,Urine 3+ (Negative); Clarity,Urine Clear (Clear/Hazy); Color,Urine Yellow (Lt Yel-Yel); Glucose, Urine Negative (Negative); Ketones,Urine Negative (Negative); Leukocyte Esterase,Urine Negative (Negative); Nitrite,Urine Negative (Negative); PH,Urine 5.5 (5.0-7.0); Protein,Urine Negative (Neg - Trace); RBC,Urine 4 /hpf (0-3); Specific Gravity,Urine 1.026 (1.001-1.035); Urobilinogen,Urine Negative mg/dL (0.0-1.0); WBC,Urine 2 /hpf (0-5)
[2025-03-14 12:49] LABS: Carbon Dioxide 25.6 mMol/L (20.0-31.0); Chloride 108 mMol/L (98-107); Potassium 4.5 mMol/L (3.4-5.1); Sodium 142 mMol/L (136-145)
[2025-03-14 12:50] LABS: Alanine Aminotransferase 11 U/L (10-49); Albumin, Serum 4.6 gm/dL (3.4-4.8); Albumin/Globulin Ratio 2.4 (1.2-2.2); Alkaline Phosphatase 66 U/L (46-116); Anion Gap 8 (7-16); Aspartate Amino Transferase 14 U/L (0-34); BUN/Creatinine Ratio 24 Ratio (12-20); Bilirubin,Total 0.6 mg/dL (0.3-1.2); Blood Urea Nitrogen 19 mg/dL (9-23); Calcium 9.0 mg/dL (8.3-10.6); Calcium (Corrected) 9.0 mg/dL (8.5-10.1); Creatinine (Component) 0.8 mg/dL (0.6-1.3); Estimated Creatinine Clearance 89.1 mL/min (>60); Globulin 1.9 gm/dL (2.3-3.5); Glucose 102 mg/dL (74-106); Osmolality,Calculated 285 (275-295); Total Protein 6.5 gm/dL (5.7-8.2); eGFR > 60 See Note
--- NOTE | 2025-03-14 13:49 | ESHP_ITS ---
RE: RUSTY GORDON : 1960 DATE OF ADMISSION: 03/14/2025 HISTORY OF PRESENT ILLNESS: Patient is an elderly gentleman with a history of a prostate cancer. He had a radical prostatectomy for prostate cancer done. He has developed urethral stricture and bladder neck contracture. Patient has difficulty urinating and he has been dilated and he was urinating but patient came with difficulty urinating. I tried to dilate his urethra, but patient has a bad obstruction probably at the bladder neck. So, he is now scheduled to have cystoscopy and internal visual urethrotomy for urethral stricture and bladder neck contracture. Planned procedure, risks and complications have been discussed with the patient. Patient has understood them and agreed to proceed. PAST SURGICAL HISTORY: Previous surgery, patient had back surgery, eye surgery, knee surgery, wrist surgery, radical robotic prostatectomy, hernia repair, neck surgery, tonsillectomy. PAST MEDICAL HISTORY: There is no history of diabetes mellitus. He has a history of hypertension. SOCIAL HISTORY: He has 2 children. ALLERGIES: ALLERGIES UNKNOWN. MEDICATIONS: He takes, 1. Pepcid. 2. Tamsulosin. 3. Statin medication. 4. Some blood pressure medicine. PHYSICAL EXAMINATION: HEENT: Normal. Neck: Supple. Lungs: Clear. Cardiovascular: Heart sounds are normal. Abdomen: Soft without any organomegaly. No guarding. No rigidity. Extremities: Normal. Genitourinary: Phallus normal. Testes are down in the scrotum. Rectal examination reveals no prostate. He had a previous surgery. IMPRESSION: 1. Urethral obstruction. 2. Urethral stricture. 3. 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 PLAN: Cystoscopy and internal visual urethrotomy. Planned procedure, risks and complications have been discussed with the patient. Patient has understood them and agreed to proceed. DT: 13:32:17 TT: 13:47:00 Ref: [id number] - TID: [id number]
[2025-03-15 11:30] VITALS: BP 160/94; PULSE 66; RESP 19; TEMP 36.6; O2SAT 100; BMI 24.3
[2025-03-15] MEDS: RINGERS LACTATED 1000 ML 1,000 ML 20 ML IV (12:00)
[2025-03-15 13:07] VITALS: BP 119/95; PULSE 81; RESP 17; TEMP 36.4; O2SAT 97
--- NOTE | 2025-03-15 13:07 | SUR.PHASEI ---
pt received from OR in recovery bay 1. pt awake and alert, breathing unlabored on room air. v/s stable. pt has pena cath in place. report received from Miguel Angel MENDOZA and Lev DOWLING.
[2025-03-15 13:15] VITALS: BP 130/92; PULSE 79; RESP 15; TEMP 36.3; O2SAT 97
[2025-03-15 13:20] VITALS: BP 158/100; PULSE 77; RESP 14; TEMP 36.3; O2SAT 100
[2025-03-15 13:25] VITALS: BP 154/94; PULSE 72; RESP 18; TEMP 36.2; O2SAT 100
[2025-03-15 13:40] VITALS: BP 165/99; PULSE 73; RESP 12; TEMP 36.2; O2SAT 100
--- NOTE | 2025-03-15 13:40 | SUR.PHASEII ---
pt able to tolerate oral fluids without difficulty swallowing or nausea/vomiting.
--- NOTE | 2025-03-15 14:00 | SUR.PHASEII ---
pt awake and alert, breathing unlabored on room air. v/s stable. pt has pena cath in place. pt able to ambulate to wheelchair with steady gait. d/c instructions given with trisha Dasilva in room, all questions answered. pt d/c via wheelchair with all belongings.
--- NOTE | 2025-03-15 15:58 | ESOP_ITS ---
RE: RUSTY GORDON : 1960 DATE OF OPERATION: 03/15/2025 PREOPERATIVE DIAGNOSES: Urethral stricture, bladder neck contracture, history of radical prostatectomy in the past. POSTOPERATIVE DIAGNOSES: Urethral stricture, bladder neck contracture, history of radical prostatectomy in the past. PROCEDURES PERFORMED: Cystoscopy, internal visual urethrotomy for bulbar urethral stricture, release of bladder neck contracture. ANESTHESIA: General. INDICATION: Patient is a 64-year-old gentleman with a history of urethral stricture and bladder neck obstruction. He had a history of prostate cancer and had a radical prostatectomy done in [place]. He developed a tight bladder neck obstruction. Patient has been having a slowing urinary stream and he was getting urethral dilatation done. He now has a slow urinary stream. Attempt to dilate urethra in the office was not successful and now patient is for above procedure in the operating room for his urethral stricture and a bladder neck obstruction. Planned procedure, risks, and complications have been discussed with the patient. Patient understood them and agreed to proceed. DESCRIPTION OF PROCEDURE: After the patient was brought to the operating table under adequate general anesthesia and dorsal lithotomy position, parts were prepped and draped in the usual fashion. Cystoscopy was carried out which revealed adequate urethral meatus, normal-appearing urethra. There was a tight bulbar urethral stricture through which the scope could not be passed. The scope was removed, internal visual urethrotome was then inserted and the stricture was opened. Again the prostate is absent from his radical prostatectomy, but there is a very tight bladder neck obstruction, which was opened up and the scope was then introduced into the bladder. Inside the bladder there are no intravesical stones or tumors. Ureteral orifices are found to be normal in position and appearance. A guide wire was inserted through the scope. The scope was removed and over the guide wire, I inserted 20-Slovenian two-way Eaton catheter into the bladder. The catheter was left indwelling. Catheter was then connected to a sterile bag. The guide wire was removed. Patient tolerated the entire procedure well and left the room in good condition. DT: 13:27:13 TT: 15:57:00 Ref: [id number] - TID: [id number]
== END 2025-03-15 14:00 | disposition home or self-care (01) ==
PROVIDERS: Anesthesiology; PCP Nurse Practitioner Family; Referring Provider Surgery; Visit Provider Surgery
PROC: 0T7D8ZZ Dilation of Urethra, Via Natural or Artificial Opening Endoscopic (ICD-10-PCS; CPT 52276; principal; 2025-03-15 12:30)
DX: N35.912 Unspecified bulbous urethral stricture, male (principal); N32.0 Bladder-neck obstruction; Z90.79 Acquired absence of other genital organ(s); Z85.46 Personal history of malignant neoplasm of prostate; N36.8 Other specified disorders of urethra
CPT/HCPCS: 52276; 36415; 80053; 81001; 85025; 87086; A4217; A4649; C1769; J0694; J2704; J3010; J3490; J7120; J1596